=== PATIENT | male | born 1975 | race Caucasian/White ===

== ENCOUNTER 2016-08-02 15:02 | Emergency (ER) | payer MEDICAID ==
[2016-08-02] MEDS ORDERED: Aspirin 81 MG Tab.Chew PO ONE (15:07)
--- NOTE | 2016-08-02 15:10 | EDM.PDOC ---
ED HISTORY OF PRESENT ILLNESS - General Stated Complaint: [id number] CHEST PAINS Time Seen by Provider: 08/02/16 15:05 Source of Information: Reports: Patient History Limitations: Reports: No limitations - History of Present Illness INITIAL COMMENTS - FREE TEXT/NARRATIVE: This 40 yo male patient reports to the ED with chest pain. The patient reports he has been having intermittent substernal chest pain a that started at about 1245 today. The patient reports his pain is sharp and takes his breath away. The patient as been attempting to rest at home, but his pain continues to come and go. The patient has been taking his medications for htn as prescribed. Symptom Onset Date: 08/02/16 Symptom Onset Time: 12:45 Timing/Duration: Reports: Intermittent Severity: severe Location, General: Reports: chest Quality: Reports: Ache, Sharp Improves with: Reports: None Worsens with: Reports: None Context, General: Reports: Other Associated Symptoms (General): Reports: chest pain - Related Data Allergies/ADRs: Allergies Allergy/AdvReac Type Severity Reaction Status Date / Time No Known Allergies Allergy Verified 08/02/16 15:39 Home Meds: Home Meds QUEtiapine [SEROquel XR] 900 mg PO BEDTIME 05/04/13 [History] Atenolol [Tenormin] 25 tab PO DAILY 12/27/13 [History] Hydrochlorothiazide 25 tab PO DAILY 12/27/13 [History] Albuterol [Proventil HFA] 1 puff INH DAILY PRN 04/29/15 [History] Fenofibrate Nanocrystallized [Fenofibrate] 1 cap PO DAILY 04/29/15 [History] Omeprazole 20 mg PO DAILY 08/02/16 [History] Past Medical History HEENT History: Reports: Impaired vision, Other (see below) Other HEENT History: NEEDS CORRECTIVE LENSES; DOES NOT WEAR PRESENTLY Cardiovascular History: Reports: High cholesterol, Hypertension Respiratory History: Reports: Asthma, Bronchitis, recurrent, Pneumothorax, Other (see below) Other Respiratory History: Collapse lower lung field, left due to punctured wound secondary to [place]; CHEST TUBE PLACEMENT/REMOVED; BORN WITH "SEVERE LUNG INFECTION" Gastrointestinal History: Reports: GERD Genitourinary History: Reports: None Musculoskeletal History: Reports: Back pain, chronic, Other (see below) Other Musculoskeletal History: DDD DEGENERATIVE DISC DISEASE; CARPAL TUNNEL SYNDROME LEFT; TIETZE'S DISEASE(costochondritis) Neurological History: Reports: Concussion, Head trauma, Migraines Psychiatric History: Reports: Bipolar, Depression Endocrine/Metabolic History: Reports: None Hematologic History: Reports: None Immunologic History: Reports: None Oncologic (Cancer) History: Reports: None Dermatologic History: Reports: None - Past Surgical History Head Surgeries/Procedures: Reports: None HEENT Surgical History: Reports: Oral surgery, Tonsillectomy, Other (see below) Other HEENT Surgeries/Procedures: PARTIAL - UPPER Cardiovascular Surgical History: Reports: None Respiratory Surgical History: Reports: None GI Surgical History: Reports: None Male Surgical History: Reports: Renal Calculus Endocrine Surgical History: Reports: None Neurological Surgical History: Reports: None Musculoskeletal Surgical History: Reports: None Oncologic Surgical History: Reports: None Dermatological Surgical History: Reports: None Social & Family History - Family History Family Medical History: Noncontributory - Tobacco Use Smoking Status *Q: Former Smoker Years of Tobacco use: 30 Packs/Tins Daily: 1 Used Tobacco, but Quit: Yes Month Tobacco Last Used: apr 2016 Second Hand Smoke Exposure: Yes - Alcohol Use Days Per Week of Alcohol Use: 0 - Recreational Drug Use Recreational Drug Use: No Drug Use in Last 12 Months: No Recreational Drug Type: Reports: Amphetamines (Speed), Barbituates, Cocaine, Codiene, Heroin, Inhalants (Glues, Solvents, Aerosols), LSD (Acid), Marijuana/ Hashish, Methamphetamine, Morphine, Ritalin, Valium - Living Situation & Occupation Living situation: Reports: , with family Occupation: employed ED ROS GENERAL - Review of Systems Review Of Systems: ROS reveals no pertinent complaints other than HPI. ED EXAM, GENERAL - Physical Exam Exam: See Below Exam Limited By: No limitations General Appearance: alert, WD/WN, mild distress Eye Exam: bilateral eye: EOMI, normal inspection, PERRL Ears: normal external exam, normal canal, hearing grossly normal, normal TMs Nose: normal inspection, normal mucosa, no blood Throat/Mouth: Normal inspection, Normal lips, Normal teeth, Normal gums, Normal oropharynx, Normal voice, No airway compromise Head: atraumatic, normocephalic Neck: normal inspection, supple, non-tender, full range of motion Respiratory/Chest: no respiratory distress, lungs clear, normal breath sounds, no accessory muscle use, chest non-tender Cardiovascular: normal peripheral pulses, regular rate, rhythm, no edema, no gallop, no JVD, no murmur, no rub GI/Abdominal: normal bowel sounds, soft, non tender, no organomegaly, no distention, no abnormal bruit, no mass (Male) Exam: Deferred Rectal (Males) Exam: Deferred Back Exam: normal inspection, full range of motion, NT Extremities: normal inspection, normal range of motion, non-tender, normal capillary refill, no pedal edema Neurological: alert, oriented, CN II-XII intact, normal cognition, normal gait, normal reflexes, no motor/sensory deficits Psychiatric: normal affect, normal mood Skin Exam: Warm, Dry, Intact, Normal color, No rash Lymphatic: no adenopathy Course - Vital Signs Last Recorded V/S: Last Vital Signs Temp 36.3 C 08/02/16 15:02 Pulse 73 08/02/16 15:02 Resp 20 08/02/16 15:02 BP 121/90 08/02/16 15:02 Pulse Ox 96 08/02/16 15:02 - Orders/Labs/Meds Orders: Active Orders 24 hr Category Date Time Status EKG Documentation Completion [RC] URGENT Care 08/02/16 15:03 Active Labs: Laboratory Tests 08/02/16 08/02/16 Range/Units 15:07 15:07 WBC 9.4 (5.0-10.0) 10^3/uL RBC 5.26 (4.6-6.2) 10^6/uL Hgb 16.6 (14.0-18.0) g/dL Hct 46.9 (40.0-54.0) % MCV 89.2 (80-100) fL MCH 31.6 (27.0-34.0) pg MCHC 35.4 H (33.0-35.0) g/dL Plt Count 263 (150-450) 10^3/uL Neut % (Auto) 61.2 (42.2-75.2) % Lymph % (Auto) 27.9 (20.5-50.1) % Kinney % (Auto) 7.7 (2-8) % Eos % (Auto) 2.9 (1.0-3.0) % Baso % (Auto) 0.3 (0.0-1.0) % Sodium 137 (135-145) mmol/L Potassium 4.0 (3.6-5.0) mmol/L Chloride 102 (101-111) mmol/L Carbon Dioxide 27.0 (21.0-31.0) mmol/L Anion Gap 12.0 BUN 15 (7-18) mg/dL Creatinine 1.1 (0.6-1.3) mg/dL Est Cr Clr Drug Dosing 97.00 mL/min Estimated GFR (MDRD) > 60 BUN/Creatinine Ratio 13.63 Glucose 92 (74-105) mg/dL Calcium 9.3 (8.4-10.2) mg/dl Total Bilirubin 0.9 (0.2-1.0) mg/dL AST 23 (10-42) IU/L ALT 37 (10-60) IU/L Alkaline Phosphatase 56 (42-121) IU/L Troponin I < 0.02 (0.00-0.02) ng/ml Total Protein 8.0 (6.7-8.2) g/dl Albumin 4.8 (3.2-5.5) g/dl Globulin 3.2 Albumin/Globulin Ratio 1.50 Meds: Medications Discontinued Medications Generic Name Dose Route Start Last Admin Trade Name Freq PRN Reason Stop Dose Admin Al Hydroxide/Mg Hydroxide 30 ml 08/02/16 15:45 08/02/16 15:49 Gi Cocktail PO 08/02/16 15:46 30 ml ONETIME ONE Administration Aspirin 324 mg 08/02/16 15:07 08/02/16 15:13 Aspirin PO 08/02/16 15:08 324 mg ONETIME ONE Administration - Re-Assessments/Exams Free Text/Narrative Re-Assessment/Exam: 08/02/16 16:11 Patient reports his pain was down to a 1/10 after the GI cocktail. Departure - Departure Time of Disposition: 16:10 Disposition: Home, Self-Care 01 Condition: fair Clinical Impression: Non-cardiac chest pain GERD (gastroesophageal reflux disease) Qualifiers: Esophagitis presence: with esophagitis Qualified Code(s): K21.0 - Gastro- esophageal reflux disease with esophagitis Instructions: Nonspecific Chest Pain, Mogw-sv-Ooya, Gastroesophageal Reflux Disease, Adult Care Plan Goals: The patient was advised of the examination, lab, x-ray and EKG results during the visit. The patient was given a GI cocktail while in the ED. The patient was encouraged to continue with his current medications as prescribed. The patient was encouraged to eat healthy meals during the day and attempt to avoid soda. If the patient has any additional symptoms or concerns, the patient should follow-up with his primary care facility or return to the emergency department. - My Orders Last 24 Hours: My Active Orders 08/02/16 15:03 EKG Documentation Completion [RC] URGENT - Assessment/Plan Last 24 Hours: My Active Orders 08/02/16 15:03 EKG Documentation Completion [RC] URGENT
--- NOTE | 2016-08-02 15:31 | CR ---
Clinical history: 40-year-old male emergency department with chest pain. Interpretation: Subtle platelike atelectasis left lung base. Normal cardiac silhouette without alveolar edema or dependent effusion. Shasha thorax unremarkable. No pneumothorax. No lung mass, hilar lymphadenopathy or focal lobar pneumonia.
[2016-08-02 15:34] VITALS: BP 121/90
[2016-08-02 15:37] LABS: CHLORIDE,CL 102 mmol/L (101-111); SODIUM,NA 137 mmol/L (135-145)
[2016-08-02] MEDS ORDERED: GI Cocktail Oral Solution 30 ML PO ONE (15:45)
--- NOTE | 2016-08-03 23:22 | EKG ---
08/02/2016 - REMBERTO JOSE - This 12-lead EKG shows normal sinus rhythm with a ventricular rate of 67. Normal axis and intervals. No acute ST-segment or T-wave changes. [facility] /[id number]
== END 2016-08-02 16:21 | disposition home or self-care (01) ==
LOC: DL.ED 15:02
DX: R07.89 Other chest pain (principal); K21.0 Gastro-esophageal reflux disease with esophagitis; E78.00 Pure hypercholesterolemia, unspecified; I10 Essential (primary) hypertension; J45.909 Unspecified asthma, uncomplicated; F32.9 Major depressive disorder, single episode, unspecified; Z87.891 Personal history of nicotine dependence; Z79.899 Other long term (current) drug therapy
CPT/HCPCS: 36415; 71010; 80053; 84484; 85025; 93005; 99285; A9270

== ENCOUNTER 2016-09-26 19:15 | Emergency (ER) | payer MEDICAID ==
[2016-09-26 19:23] VITALS: BP 132/85
--- NOTE | 2016-09-26 19:50 | EDM.PDOC ---
ED HPI GENERAL MEDICAL PROBLEM - General Chief Complaint: Skin Complaint Stated Complaint: SUNBURN ABOUT WEEK AGO BLISTERING, [id number] Time Seen by Provider: 09/26/16 19:35 Source of Information: Reports: Patient History Limitations: Reports: No Limitations - History of Present Illness INITIAL COMMENTS - FREE TEXT/NARRATIVE: Sunburn to arms one week ago, blistering out in sun today, seems worse, has not been using sunscreen. No fever - Related Data Allergies Allergy/AdvReac Type Severity Reaction Status Date / Time No Known Allergies Allergy Verified 09/26/16 19:22 Home Meds: Home Meds QUEtiapine [SEROquel XR] 900 mg PO BEDTIME 05/04/13 [History] Atenolol [Tenormin] 25 tab PO DAILY 12/27/13 [History] Hydrochlorothiazide 25 tab PO DAILY 12/27/13 [History] Albuterol [Proventil HFA] 1 puff INH DAILY PRN 04/29/15 [History] Fenofibrate Nanocrystallized [Fenofibrate] 1 cap PO DAILY 04/29/15 [History] Omeprazole 20 mg PO DAILY 08/02/16 [History] Past Medical History HEENT History: Reports: Impaired Vision, Other (See Below) Other HEENT History: NEEDS CORRECTIVE LENSES; DOES NOT WEAR PRESENTLY Cardiovascular History: Reports: High Cholesterol, Hypertension Respiratory History: Reports: Asthma, Bronchitis, Recurrent, Pneumothorax, Other (See Below) Other Respiratory History: Collapse lower lung field, left due to punctured wound secondary to [place]; CHEST TUBE PLACEMENT/REMOVED; BORN WITH "SEVERE LUNG INFECTION" Gastrointestinal History: Reports: GERD Genitourinary History: Reports: None Musculoskeletal History: Reports: Back Pain, Chronic, Other (See Below) Other Musculoskeletal History: DDD DEGENERATIVE DISC DISEASE; CARPAL TUNNEL SYNDROME LEFT; TIETZE'S DISEASE(costochondritis) Neurological History: Reports: Concussion, Head Trauma, Migraines Psychiatric History: Reports: Bipolar, Depression Endocrine/Metabolic History: Reports: None Hematologic History: Reports: None Immunologic History: Reports: None Oncologic (Cancer) History: Reports: None Dermatologic History: Reports: None - Past Surgical History Head Surgeries/Procedures: Reports: None HEENT Surgical History: Reports: Oral Surgery, Tonsillectomy, Other (See Below) GI Surgical History: Reports: None Male Surgical History: Reports: Renal Calculus Endocrine Surgical History: Reports: None Oncologic Surgical History: Reports: None Dermatological Surgical History: Reports: None Social & Family History - Family History Family Medical History: Noncontributory - Tobacco Use Smoking Status *Q: Former Smoker Years of Tobacco use: 30 Packs/Tins Daily: 1 Used Tobacco, but Quit: No Month Tobacco Last Used: apr 2016 Second Hand Smoke Exposure: No - Caffeine Use Caffeine Use: Reports: Soda - Alcohol Use Days Per Week of Alcohol Use: 0 - Recreational Drug Use Recreational Drug Use: No Drug Use in Last 12 Months: No Recreational Drug Type: Reports: Amphetamines (Speed), Barbituates, Cocaine, Codiene, Heroin, Inhalants (Glues, Solvents, Aerosols), LSD (Acid), Marijuana/ Hashish, Methamphetamine, Morphine, Ritalin, Valium - Living Situation & Occupation Living situation: Reports: , with Family Occupation: Employed ED ROS GENERAL - Review of Systems Review Of Systems: ROS reveals no pertinent complaints other than HPI. ED EXAM, SKIN/RASH Exam: See Below Exam Limited By: No Limitations General Appearance: Alert, No Apparent Distress Ears: Normal External Exam Throat/Mouth: Normal Inspection Head: Atraumatic Neck: Normal Inspection Respiratory/Chest: No Respiratory Distress Cardiovascular: Normal Peripheral Pulses Neurological: Alert, Oriented Psychiatric: Normal Affect Skin: Warm, Dry, Intact, Other (superficial blistering to upper arms various stages, lower upper posterior arms appear new upper arms, older with some sloughing of blistering bilateral upper arms, lower arms red, no blistering. Vesicles appear clear.) Course - Vital Signs Last Recorded V/S: Last Vital Signs Temp 98.2 F 09/26/16 19:22 Pulse 87 09/26/16 19:22 Resp 18 09/26/16 19:22 BP 132/85 09/26/16 19:22 Pulse Ox 97 09/26/16 19:22 Departure - Departure Time of Disposition: 19:44 Disposition: Home, Self-Care 01 Condition: Fair Clinical Impression: Sunburn, blistering - Discharge Information Instructions: Sunburn, [id number] Forms: ED Department Discharge Additional Instructions: keep area covered lotion without perfumes, may apply antibiotic ointment to area at night. follow up if fever, or purulent drainage from area Use sunscreen
== END 2016-09-26 19:51 | disposition home or self-care (01) ==
LOC: DL.ED 19:15
DX: S40.822A Blister (nonthermal) of left upper arm, initial encounter (principal); S40.821A Blister (nonthermal) of right upper arm, initial encounter; S50.822A Blister (nonthermal) of left forearm, initial encounter; S50.821A Blister (nonthermal) of right forearm, initial encounter; H54.7 Unspecified visual loss; E78.00 Pure hypercholesterolemia, unspecified; I10 Essential (primary) hypertension; K21.9 Gastro-esophageal reflux disease without esophagitis; F32.9 Major depressive disorder, single episode, unspecified; Z79.899 Other long term (current) drug therapy; J45.909 Unspecified asthma, uncomplicated; Z98.890 Other specified postprocedural states; Z87.891 Personal history of nicotine dependence; X32.XXXA Exposure to sunlight, initial encounter
CPT/HCPCS: 99282

== ENCOUNTER 2016-11-28 17:13 | Emergency (ER) | payer OTHER, MEDICAID | END 2016-11-28 21:37 | disposition home or self-care (01) | LOC: DL.ED 17:13 | DX: S09.90XA Unspecified injury of head, initial encounter (principal); S16.1XXA Strain of muscle, fascia and tendon at neck level, initial encounter; S00.93XA Contusion of unspecified part of head, initial encounter; X58.XXXA Exposure to other specified factors, initial encounter | CPT/HCPCS: 70450; 99284 ==

== ENCOUNTER 2017-01-01 21:39 | Emergency (ER) | payer MEDICAID, OTHER ==
[2017-01-01] MEDS ORDERED: Albuterol 0.083% 2.5 MG/3 ML Neb Soln NEB ONE (21:43)
[2017-01-01 21:56] LABS: CHLORIDE,CL 106 mmol/L (101-111); SODIUM,NA 141 mmol/L (135-145)
--- NOTE | 2017-01-01 23:13 | EDM.PDOC ---
ED HPI GENERAL MEDICAL PROBLEM - General Chief Complaint: Chest Pain Stated Complaint: IN BY AMBULANCE Time Seen by Provider: 01/01/17 21:40 Source of Information: Reports: Patient History Limitations: Reports: No Limitations - History of Present Illness INITIAL COMMENTS - FREE TEXT/NARRATIVE: ED via [facility] with c/o midsternal chest pain radiating thrugh to back. Noted while at work at [employer]. Hx of asthma. Simialr episodes in past. Pain worse with deep breathing. Onset: Today Duration: Intermittent, Improving Location: Reports: Chest Quality: Reports: Ache, Burning, Stabbing Severity: Moderate Context: Reports: Activity. Denies: Trauma Anterior Chest Pain Score (Numeric/FACES): 5 - Related Data Allergies Allergy/AdvReac Type Severity Reaction Status Date / Time No Known Allergies Allergy Verified 01/01/17 21:23 Home Meds: Home Meds QUEtiapine [SEROquel XR] 900 mg PO BEDTIME 05/04/13 [History] Atenolol [Tenormin] 25 tab PO DAILY 12/27/13 [History] Hydrochlorothiazide 25 tab PO DAILY 12/27/13 [History] Albuterol [Proventil HFA] 1 puff INH DAILY PRN 04/29/15 [History] Fenofibrate Nanocrystallized [Fenofibrate] 1 cap PO DAILY 04/29/15 [History] Omeprazole 20 mg PO DAILY 08/02/16 [History] Past Medical History HEENT History: Reports: Impaired Vision, Other (See Below) Other HEENT History: NEEDS CORRECTIVE LENSES; DOES NOT WEAR PRESENTLY Cardiovascular History: Reports: High Cholesterol, Hypertension Respiratory History: Reports: Asthma, Bronchitis, Recurrent, Pneumothorax, Other (See Below) Other Respiratory History: Collapse lower lung field, left due to punctured wound secondary to [place]; CHEST TUBE PLACEMENT/REMOVED; BORN WITH "SEVERE LUNG INFECTION" Gastrointestinal History: Reports: GERD Genitourinary History: Reports: None Musculoskeletal History: Reports: Back Pain, Chronic, Other (See Below) Other Musculoskeletal History: DDD DEGENERATIVE DISC DISEASE; CARPAL TUNNEL SYNDROME LEFT; TIETZE'S DISEASE(costochondritis) Neurological History: Reports: Concussion, Head Trauma, Migraines Psychiatric History: Reports: ADHD, Anxiety, Bipolar, Depression, Panic Attack Endocrine/Metabolic History: Reports: None Hematologic History: Reports: None Immunologic History: Reports: None Oncologic (Cancer) History: Reports: None Dermatologic History: Reports: None - Past Surgical History Head Surgeries/Procedures: Reports: None HEENT Surgical History: Reports: Oral Surgery, Tonsillectomy, Other (See Below) GI Surgical History: Reports: None Male Surgical History: Reports: Renal Calculus Endocrine Surgical History: Reports: None Oncologic Surgical History: Reports: None Dermatological Surgical History: Reports: None Social & Family History - Family History Family Medical History: Noncontributory - Tobacco Use Smoking Status *Q: Current Every Day Smoker Years of Tobacco use: 30 Packs/Tins Daily: 1 Used Tobacco, but Quit: No Month Tobacco Last Used: apr 2016 Second Hand Smoke Exposure: No - Caffeine Use Caffeine Use: Reports: Coffee - Alcohol Use Days Per Week of Alcohol Use: 0 - Recreational Drug Use Recreational Drug Use: No Drug Use in Last 12 Months: No Recreational Drug Type: Reports: Amphetamines (Speed), Barbituates, Cocaine, Codiene, Heroin, Inhalants (Glues, Solvents, Aerosols), LSD (Acid), Marijuana/ Hashish, Methamphetamine, Morphine, Ritalin, Valium - Living Situation & Occupation Living situation: Reports: , with Family Occupation: Employed ED ROS GENERAL - Review of Systems Review Of Systems: See Below Constitutional: Reports: No Symptoms HEENT: Reports: No Symptoms Respiratory: Reports: Shortness of Breath, Pleuritic Chest Pain Cardiovascular: Reports: Chest Pain. Denies: Dyspnea on Exertion, Edema Endocrine: Reports: No Symptoms GI/Abdominal: Reports: No Symptoms Musculoskeletal: Reports: No Symptoms Skin: Reports: No Symptoms Neurological: Reports: No Symptoms ED EXAM, GENERAL - Physical Exam Exam: See Below Exam Limited By: No Limitations General Appearance: Alert, No Apparent Distress Eye Exam: Bilateral Eye: EOMI, PERRL Ears: Normal External Exam, Normal TMs Nose: Normal Inspection Throat/Mouth: Normal Inspection Head: Atraumatic, Normocephalic Neck: Normal Inspection Respiratory/Chest: No Respiratory Distress, Lungs Clear, Decreased Breath Sounds Cardiovascular: Normal Peripheral Pulses, Regular Rate, Rhythm, No Edema, No Gallop, No JVD GI/Abdominal: Normal Bowel Sounds Back Exam: Normal Inspection, Decreased Range of Motion Neurological: Alert, Oriented, CN II-XII Intact, Normal Cognition, Normal Gait, Normal Reflexes Psychiatric: Normal Affect, Normal Mood Skin Exam: Warm, Dry, Intact, Normal Color, No Rash Course - Vital Signs Last Recorded V/S: Last Vital Signs Temp 97.7 F 01/01/17 23:23 Pulse 90 01/01/17 23:23 Resp 20 01/01/17 23:23 BP 145/98 H 01/01/17 23:47 Pulse Ox 98 01/01/17 23:23 - Orders/Labs/Meds Orders: Active Orders 24 hr Category Date Time Status RT Aerosol Therapy [RC] ASDIRECTED Care 01/01/17 21:44 Active Labs: Laboratory Tests 01/01/17 01/01/17 Range/Units 21:26 21:26 WBC 8.1 (5.0-10.0) 10^3/uL RBC 4.98 (4.6-6.2) 10^6/uL Hgb 15.6 (14.0-18.0) g/dL Hct 44.3 (40.0-54.0) % MCV 89.0 (80-100) fL MCH 31.3 (27.0-34.0) pg MCHC 35.2 H (33.0-35.0) g/dL Plt Count 246 (150-450) 10^3/uL Neut % (Auto) 58.1 (42.2-75.2) % Lymph % (Auto) 29.8 (20.5-50.1) % Phillips % (Auto) 9.6 H (2-8) % Eos % (Auto) 2.0 (1.0-3.0) % Baso % (Auto) 0.5 (0.0-1.0) % Sodium 141 (135-145) mmol/L Potassium 3.8 (3.6-5.0) mmol/L Chloride 106 (101-111) mmol/L Carbon Dioxide 23.0 (21.0-31.0) mmol/L Anion Gap 15.8 BUN 10 (7-18) mg/dL Creatinine 1.0 (0.6-1.3) mg/dL Est Cr Clr Drug Dosing 105.62 mL/min Estimated GFR (MDRD) > 60 BUN/Creatinine Ratio 10.00 Glucose 125 H (74-105) mg/dL Calcium 8.8 (8.4-10.2) mg/dl Total Bilirubin 0.7 (0.2-1.0) mg/dL AST 22 (10-42) IU/L ALT 23 (10-60) IU/L Alkaline Phosphatase 45 (42-121) IU/L Troponin I < 0.02 (0.00-0.02) ng/ml Total Protein 6.9 (6.7-8.2) g/dl Albumin 4.1 (3.2-5.5) g/dl Globulin 2.8 Albumin/Globulin Ratio 1.46 Meds: Medications Discontinued Medications Generic Name Dose Route Start Last Admin Trade Name Mary Anne PRN Reason Stop Dose Admin Albuterol 2.5 mg 01/01/17 21:43 01/01/17 21:47 Proventil Neb Soln NEB 01/01/17 21:44 2.5 mg ONETIME ONE Administration Atenolol 25 mg 01/01/17 23:41 01/01/17 23:47 Tenormin PO 01/01/17 23:42 25 mg ONETIME ONE Administration - Radiology Interpretation Free Text/Narrative:: CXR unremarkable Departure - Departure Time of Disposition: 23:42 Disposition: Home, Self-Care 01 Condition: Good Clinical Impression: Asthma Qualifiers: Asthma severity: mild intermittent Asthma complication type: with acute exacerbation Qualified Code(s): J45.21 - Mild intermittent asthma with (acute) exacerbation - Discharge Information Instructions: Nonspecific Chest Pain, [id number], Asthma, Adult, [id number] Referrals: PCP,Not In Area [Primary Care Provider] - Forms: ED Department Discharge Additional Instructions: albuterol 2 puffs every 4 hours as needed for cough wheezing monitor blood pressure, follow up if increased pain or breathing difficulty - My Orders Last 24 Hours: My Active Orders 01/01/17 21:44 RT Aerosol Therapy [RC] ASDIRECTED - Assessment/Plan Last 24 Hours: My Active Orders 01/01/17 21:44 RT Aerosol Therapy [RC] ASDIRECTED
[2017-01-01] MEDS ORDERED: Atenolol 25 MG Tab PO ONE (23:41)
[2017-01-01 23:47] VITALS: BP 145/98
--- NOTE | 2017-01-05 11:12 | EKG ---
01/01/2017 - REMBERTO JOSE - This 12-lead EKG shows a normal sinus rhythm with ventricular rate of 94. Normal axis and intervals. No acute ST-segment or T-wave changes. [facility] /[id number]
== END 2017-01-01 23:59 | disposition home or self-care (01) ==
LOC: DL.ED 21:39
DX: J45.21 Mild intermittent asthma with (acute) exacerbation (principal); K21.9 Gastro-esophageal reflux disease without esophagitis; F17.210 Nicotine dependence, cigarettes, uncomplicated; Z79.899 Other long term (current) drug therapy
CPT/HCPCS: 36415; 71010; 80053; 84484; 85025; 94640; 99285; A9270; J7620

== ENCOUNTER 2017-01-27 14:27 | Emergency (ER) | payer MEDICAID ==
[2017-01-27 15:01] VITALS: BP 126/89
[2017-01-27] MEDS ORDERED: Sodium Chloride 0.9% 1,000 ML IV ONE (15:08)
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
[2017-01-27 15:44] LABS: CHLORIDE,CL 105 mmol/L (101-111); SODIUM,NA 140 mmol/L (135-145)
[2017-01-27] MEDS ORDERED: Potassium Chloride 10 MEQ Tab.ER PO ONE (16:01)
--- NOTE | 2017-01-30 11:31 | EKG ---
01/27/2017 - REMBERTO JOSE - TIME: 1511 hours. EKG shows normal sinus rhythm. There are nonspecific T-wave abnormality. [facility] /[id number]
== END 2017-01-27 17:30 | disposition home or self-care (01) ==
LOC: DL.ED 14:27
DX: R55 Syncope and collapse (principal); F19.10 Other psychoactive substance abuse, uncomplicated; E78.00 Pure hypercholesterolemia, unspecified; I10 Essential (primary) hypertension; J45.909 Unspecified asthma, uncomplicated; Z79.899 Other long term (current) drug therapy; Z87.891 Personal history of nicotine dependence
CPT/HCPCS: 36415; 70450; 80053; 80305; 81001; 83735; 85025; 93005; 96360; 99284; A9270; J7030

== ENCOUNTER 2017-03-07 11:39 | Emergency (ER) | payer MEDICAID ==
[2017-03-07 12:45] VITALS: BP 141/90
--- NOTE | 2017-03-07 13:24 | CR ---
Clinical history: 41-year-old male fell off [employer] pickup (back pain). Interpretation: AP, lateral views lumbar spine abnormal. Mildly scoliosis and signs of chronic severe lower lumbar disc disease i.e. interspace narrowing with endplate sclerosis and hypertrophic marginal spur formation at the lowest L5-S1 level. No sign of pathologic skeletal lesion and, specifically, no fracture or dislocation of the lumbar spi ne. Symmetric spacing normal-appearing SI and hip joints. No foreign bodies.
--- NOTE | 2017-03-07 13:47 | EDM.PDOC ---
ED HPI GENERAL MEDICAL PROBLEM - General Chief Complaint: Back Pain or Injury Stated Complaint: SLIPPED AND BACK IS HURTING Time Seen by Provider: 03/07/17 13:46 Source of Information: Reports: Patient History Limitations: Reports: No Limitations - History of Present Illness INITIAL COMMENTS - FREE TEXT/NARRATIVE: 41 yo white male w/ PMHx. Lumbar DDD c/o more pain after assisting another person with boxes @ 11:30AM Onset: Today Onset Date: 03/07/17 Onset Time: 11:00 Duration: Hour(s): Location: Reports: Back Quality: Reports: Ache Severity: Moderate Improves with: Reports: Rest Worsens with: Reports: Movement Context: Reports: Activity Associated Symptoms: Reports: No Other Symptoms Lower Back Pain Score (Numeric/FACES): 9 - Related Data Allergies Allergy/AdvReac Type Severity Reaction Status Date / Time No Known Allergies Allergy Verified 01/30/17 07:45 Home Meds: Home Meds QUEtiapine [SEROquel XR] 900 mg PO BEDTIME 05/04/13 [History] Atenolol [Tenormin] 25 tab PO DAILY 12/27/13 [History] Hydrochlorothiazide 25 tab PO DAILY 12/27/13 [History] Albuterol [Proventil HFA] 1 puff INH Q4HR PRN 04/29/15 [History] Fenofibrate Nanocrystallized [Fenofibrate] 160 mg PO DAILY 04/29/15 [History] Omeprazole 20 mg PO BID 08/02/16 [History] Fluticasone Propionate [Flovent Hfa] 2 puff IH BID 01/30/17 [History] Simvastatin [Zocor] 10 mg PO BEDTIME 01/30/17 [History] Lidocaine [Lidoderm] 1 patch TD BEDTIME 03/07/17 [History] Past Medical History HEENT History: Reports: Impaired Vision, Other (See Below) Other HEENT History: NEEDS CORRECTIVE LENSES; DOES NOT WEAR PRESENTLY Cardiovascular History: Reports: High Cholesterol, Hypertension Respiratory History: Reports: Asthma, Bronchitis, Recurrent, Pneumothorax, Other (See Below) Other Respiratory History: Collapse lower lung field, left due to punctured wound secondary to [place]; CHEST TUBE PLACEMENT/REMOVED; BORN WITH "SEVERE LUNG INFECTION" Gastrointestinal History: Reports: GERD Genitourinary History: Reports: None Musculoskeletal History: Reports: Back Pain, Chronic, Other (See Below) Other Musculoskeletal History: DDD DEGENERATIVE DISC DISEASE; CARPAL TUNNEL SYNDROME LEFT; TIETZE'S DISEASE(costochondritis) Neurological History: Reports: Concussion, Head Trauma, Migraines Psychiatric History: Reports: Bipolar, Depression Endocrine/Metabolic History: Reports: None Hematologic History: Reports: None Immunologic History: Reports: None Oncologic (Cancer) History: Reports: None Dermatologic History: Reports: None - Past Surgical History Head Surgeries/Procedures: Reports: None HEENT Surgical History: Reports: Naso-Sinus Surgery, Tonsillectomy Social & Family History - Family History Family Medical History: Noncontributory - Tobacco Use Smoking Status *Q: Former Smoker Years of Tobacco use: 30 Packs/Tins Daily: 1 Used Tobacco, but Quit: Yes Month Tobacco Last Used: 08/2016 Tobacco Use Comment: Pt smoked 2 packs a day for 30 years, just quit 6 months ago Second Hand Smoke Exposure: No - Caffeine Use Caffeine Use: Reports: Coffee, Energy Drinks, Soda - Alcohol Use Days Per Week of Alcohol Use: 0 - Recreational Drug Use Recreational Drug Use: No Drug Use in Last 12 Months: No Recreational Drug Type: Reports: Amphetamines (Speed), Barbituates, Cocaine, Codiene, Heroin, Inhalants (Glues, Solvents, Aerosols), LSD (Acid), Marijuana/ Hashish, Methamphetamine, Morphine, Ritalin, Valium - Living Situation & Occupation Living situation: Reports: , with Family Occupation: Employed ED ROS GENERAL - Review of Systems Review Of Systems: See Below Constitutional: Reports: No Symptoms HEENT: Reports: No Symptoms Respiratory: Reports: No Symptoms Cardiovascular: Reports: No Symptoms Endocrine: Reports: No Symptoms GI/Abdominal: Reports: No Symptoms : Reports: No Symptoms Musculoskeletal: Reports: Back Pain Skin: Reports: No Symptoms Neurological: Reports: No Symptoms Psychiatric: Reports: No Symptoms Hematologic/Lymphatic: Reports: No Symptoms Immunologic: Reports: No Symptoms ED EXAM,LOWER BACK PAIN/INJURY - Physical Exam Exam: See Below Exam Limited By: No Limitations General Appearance: Alert, No Apparent Distress Eye Exam: Bilateral Eye: EOMI Ears: Normal External Exam Nose: Normal Inspection Throat/Mouth: Normal Inspection Head: Atraumatic Neck: Normal Inspection Respiratory/Chest: No Respiratory Distress Cardiovascular: Normal Peripheral Pulses GI/Abdominal: Normal Bowel Sounds Back Exam: Normal Inspection, Paraspinal Tenderness Extremities: Normal Inspection Neurological: Alert, Normal Mood/Affect, Normal Dorsiflexion DTR - Lower Extremities: 2+: Knee (R), Knee (L) Psychiatric: Normal Affect Skin Exam: Warm Lymphatic: No Adenopathy Course - Vital Signs Last Recorded V/S: Last Vital Signs Temp 36.6 C 03/07/17 12:44 Pulse 111 H 03/07/17 12:44 Resp 20 03/07/17 12:44 BP 141/90 H 03/07/17 12:44 Pulse Ox 98 03/07/17 12:44 Departure - Departure Time of Disposition: 13:53 Disposition: Home, Self-Care 01 Condition: Good Clinical Impression: Lumbar degenerative disc disease - Discharge Information Instructions: Back Pain, Adult, [id number], Chronic Back Pain Forms: ED Department Discharge Additional Instructions: Rest Moist Heat to Low Back TID X 15 mins For Pain and Spasms: NEURONTIN 300mg BID # 20 F/U w/ PCP
== END 2017-03-07 14:01 | disposition home or self-care (01) ==
LOC: DL.ED 11:39
DX: M51.36 Other intervertebral disc degeneration, lumbar region (principal); I10 Essential (primary) hypertension; E78.00 Pure hypercholesterolemia, unspecified; J45.909 Unspecified asthma, uncomplicated; K21.9 Gastro-esophageal reflux disease without esophagitis; Z87.891 Personal history of nicotine dependence; Z79.899 Other long term (current) drug therapy
CPT/HCPCS: 72100; 99283

== ENCOUNTER 2017-03-16 16:46 | Emergency (ER) | payer MEDICAID ==
--- NOTE | 2017-03-16 17:32 | EDM.PDOC ---
ED HPI GENERAL MEDICAL PROBLEM - General Chief Complaint: Back Pain or Injury Stated Complaint: CAME BY AMBULANCE, COLLAPSED Time Seen by Provider: 03/16/17 17:23 Source of Information: Reports: Patient, RN, RN Notes Reviewed History Limitations: Reports: No Limitations - History of Present Illness INITIAL COMMENTS - FREE TEXT/NARRATIVE: Pt presents to ER per [facility]. He states he felt a sharp pain down his legs and collapsed on the floor at home. Pt denies being dizzy prior to the episode. He states he has chronic back issues. Patient denies any recent illnesses, fever, chills, sob, cp, cough, sore throat, N/V/D. Onset: Today, Sudden Back Pain Score (Numeric/FACES): 9 - Related Data Allergies Allergy/AdvReac Type Severity Reaction Status Date / Time No Known Allergies Allergy Verified 03/16/17 16:58 Home Meds: Home Meds QUEtiapine [SEROquel XR] 900 mg PO BEDTIME 05/04/13 [History] Atenolol [Tenormin] 25 tab PO DAILY 12/27/13 [History] Hydrochlorothiazide 25 tab PO DAILY 12/27/13 [History] Albuterol [Proventil HFA] 1 puff INH Q4HR PRN 04/29/15 [History] Fenofibrate Nanocrystallized [Fenofibrate] 160 mg PO DAILY 04/29/15 [History] Fluticasone Propionate [Flovent Hfa] 2 puff IH BID 01/30/17 [History] Simvastatin [Zocor] 10 mg PO BEDTIME 01/30/17 [History] Lidocaine [Lidoderm] 1 patch TD BEDTIME 03/07/17 [History] Albuterol [Proventil Neb Soln] 0.63 mg NEB Q6HRRT PRN 03/16/17 [History] Gabapentin [Neurontin] 600 mg PO BID 03/16/17 [History] traMADol [Ultram] 50 mg PO TID 03/16/17 [History] Past Medical History HEENT History: Reports: Impaired Vision, Other (See Below) Other HEENT History: NEEDS CORRECTIVE LENSES; DOES NOT WEAR PRESENTLY Cardiovascular History: Reports: High Cholesterol, Hypertension Respiratory History: Reports: Asthma, Bronchitis, Recurrent, Pneumothorax, Other (See Below) Other Respiratory History: Collapse lower lung field, left due to punctured wound secondary to [place]; CHEST TUBE PLACEMENT/REMOVED; BORN WITH "SEVERE LUNG INFECTION" Gastrointestinal History: Reports: GERD Genitourinary History: Reports: None Musculoskeletal History: Reports: Back Pain, Chronic, Other (See Below) Other Musculoskeletal History: DDD DEGENERATIVE DISC DISEASE; CARPAL TUNNEL SYNDROME LEFT; TIETZE'S DISEASE(costochondritis) Neurological History: Reports: Concussion, Head Trauma, Migraines Psychiatric History: Reports: Bipolar, Depression Endocrine/Metabolic History: Reports: None Hematologic History: Reports: None Immunologic History: Reports: None Oncologic (Cancer) History: Reports: None Dermatologic History: Reports: None - Infectious Disease History Infectious Disease History: Reports: Chicken Pox - Past Surgical History Head Surgeries/Procedures: Reports: None HEENT Surgical History: Reports: Naso-Sinus Surgery, Tonsillectomy Social & Family History - Family History Family Medical History: Noncontributory - Tobacco Use Smoking Status *Q: Former Smoker Years of Tobacco use: 30 Packs/Tins Daily: 2 Used Tobacco, but Quit: Yes Month Tobacco Last Used: october Second Hand Smoke Exposure: No - Caffeine Use Caffeine Use: Reports: Soda - Alcohol Use Days Per Week of Alcohol Use: 0 - Recreational Drug Use Recreational Drug Use: No Drug Use in Last 12 Months: No Recreational Drug Type: Reports: Amphetamines (Speed), Barbituates, Cocaine, Codiene, Heroin, Inhalants (Glues, Solvents, Aerosols), LSD (Acid), Marijuana/ Hashish, Methamphetamine, Morphine, Ritalin, Valium - Living Situation & Occupation Living situation: Reports: , with Family Occupation: Employed ED ROS GENERAL - Review of Systems Review Of Systems: ROS reveals no pertinent complaints other than HPI. ED EXAM, GENERAL - Physical Exam Exam: See Below Exam Limited By: No Limitations General Appearance: Alert, WD/WN, No Apparent Distress Eye Exam: Bilateral Eye: EOMI, Normal Inspection Ears: Normal External Exam, Hearing Grossly Normal Nose: Normal Inspection Throat/Mouth: Normal Inspection, Normal Voice, No Airway Compromise Head: Atraumatic, Normocephalic Neck: Normal Inspection, Supple, Non-Tender, Full Range of Motion Respiratory/Chest: No Respiratory Distress, Lungs Clear, Normal Breath Sounds, No Accessory Muscle Use, Chest Non-Tender Cardiovascular: Normal Peripheral Pulses, Regular Rate, Rhythm, No Edema, No Gallop, No JVD, No Murmur, No Rub Peripheral Pulses: 2+: Radial (L), Radial (R) GI/Abdominal: Normal Bowel Sounds, Soft, Non-Tender, No Organomegaly, No Distention, No Abnormal Bruit, No Mass (Male) Exam: Deferred Rectal (Males) Exam: Deferred Back Exam: Normal Inspection, Decreased Range of Motion, Paraspinal Tenderness, Vertebral Tenderness Extremities: Normal Inspection, Normal Range of Motion, Non-Tender, No Pedal Edema Neurological: Alert, Oriented, CN II-XII Intact, Normal Cognition, No Motor/ Sensory Deficits Psychiatric: Normal Affect, Normal Mood Skin Exam: Warm, Dry, Intact, Normal Color, No Rash Lymphatic: No Adenopathy EKG INTERPRETATION EKG Date: 03/16/17 Rhythm: NSR Rate (Beats/Min): 75 [place]: Normal P-Wave: Present QRS: Normal ST-T: Normal QT: Normal Comparison: NA - No Prior EKG Course - Vital Signs Last Recorded V/S: Last Vital Signs Temp 97.4 F 03/16/17 18:13 Pulse 73 03/16/17 18:13 Resp 20 03/16/17 18:13 BP 148/103 H 03/16/17 18:13 Pulse Ox 96 03/16/17 18:13 - Orders/Labs/Meds Labs: Laboratory Tests 03/16/17 03/16/17 03/16/17 Range/Units 17:40 17:40 18:28 WBC 8.5 (5.0-10.0) 10^3/uL RBC 4.89 (4.6-6.2) 10^6/uL Hgb 15.4 (14.0-18.0) g/dL Hct 43.2 (40.0-54.0) % MCV 88.3 (80-100) fL MCH 31.5 (27.0-34.0) pg MCHC 35.6 H (33.0-35.0) g/dL Plt Count 264 (150-450) 10^3/uL Neut % (Auto) 66.9 (42.2-75.2) % Lymph % (Auto) 23.0 (20.5-50.1) % Yell % (Auto) 9.0 H (2-8) % Eos % (Auto) 0.7 L (1.0-3.0) % Baso % (Auto) 0.4 (0.0-1.0) % Sodium 137 (135-145) mmol/L Potassium 3.5 L (3.6-5.0) mmol/L Chloride 100 L (101-111) mmol/L Carbon Dioxide 27.0 (21.0-31.0) mmol/L Anion Gap 13.5 BUN 14 (7-18) mg/dL Creatinine 1.1 (0.6-1.3) mg/dL Est Cr Clr Drug Dosing 96.02 mL/min Estimated GFR (MDRD) > 60 BUN/Creatinine Ratio 12.72 Glucose 101 (74-105) mg/dL Calcium 9.6 (8.4-10.2) mg/dl Total Bilirubin 0.9 (0.2-1.0) mg/dL AST 34 (10-42) IU/L ALT 43 (10-60) IU/L Alkaline Phosphatase 42 (42-121) IU/L Total Protein 8.0 (6.7-8.2) g/dl Albumin 4.8 (3.2-5.5) g/dl Globulin 3.2 Albumin/Globulin Ratio 1.50 Urine Color Yellow (YELLOW) Urine Appearance Clear (CLEAR) Urine pH 7.0 (5.0-9.0) Ur Specific [place] 1.015 (1.005-1.030) Urine Protein Negative (NEGATIVE) Urine Glucose (UA) Negative (NEGATIVE) Urine Ketones Negative (NEGATIVE) Urine Occult Blood Negative (NEGATIVE) Urine Nitrite Negative (NEGATIVE) Urine Bilirubin Negative (NEGATIVE) Urine Urobilinogen 0.2 (0.2-1.0) mg/dL Ur Leukocyte Esterase Negative (NEGATIVE) Urine RBC 0-5 /HPF Urine WBC 0-5 (0-5/HPF) /HPF Ur Epithelial Cells Occasional /HPF Urine Bacteria Occasional (0-FEW/HPF) /HPF Urine Opiates Screen (NEGATIVE) Ur Oxycodone Screen (NEGATIVE) Urine Methadone Screen (NEGATIVE) Ur Barbiturates Screen (NEGATIVE) U Tricyclic Antidepress (NEGATIVE) Ur Phencyclidine Scrn (NEGATIVE) Ur Amphetamine Screen (NEGATIVE) U Methamphetamines Scrn (NEGATIVE) Urine MDMA Screen (NEGATIVE) U Benzodiazepines Scrn (NEGATIVE) Urine Cocaine Screen (NEGATIVE) U Marijuana (THC) Screen (NEGATIVE) 03/16/17 Range/Units 18:28 WBC (5.0-10.0) 10^3/uL RBC (4.6-6.2) 10^6/uL Hgb (14.0-18.0) g/dL Hct (40.0-54.0) % MCV (80-100) fL MCH (27.0-34.0) pg MCHC (33.0-35.0) g/dL Plt Count (150-450) 10^3/uL Neut % (Auto) (42.2-75.2) % Lymph % (Auto) (20.5-50.1) % Yell % (Auto) (2-8) % Eos % (Auto) (1.0-3.0) % Baso % (Auto) (0.0-1.0) % Sodium (135-145) mmol/L Potassium (3.6-5.0) mmol/L Chloride (101-111) mmol/L Carbon Dioxide (21.0-31.0) mmol/L Anion Gap BUN (7-18) mg/dL Creatinine (0.6-1.3) mg/dL Est Cr Clr Drug Dosing mL/min Estimated GFR (MDRD) BUN/Creatinine Ratio Glucose (74-105) mg/dL Calcium (8.4-10.2) mg/dl Total Bilirubin (0.2-1.0) mg/dL AST (10-42) IU/L ALT (10-60) IU/L Alkaline Phosphatase (42-121) IU/L Total Protein (6.7-8.2) g/dl Albumin (3.2-5.5) g/dl Globulin Albumin/Globulin Ratio Urine Color (YELLOW) Urine Appearance (CLEAR) Urine pH (5.0-9.0) Ur Specific [place] (1.005-1.030) Urine Protein (NEGATIVE) Urine Glucose (UA) (NEGATIVE) Urine Ketones (NEGATIVE) Urine Occult Blood (NEGATIVE) Urine Nitrite (NEGATIVE) Urine Bilirubin (NEGATIVE) Urine Urobilinogen (0.2-1.0) mg/dL Ur Leukocyte Esterase (NEGATIVE) Urine RBC /HPF Urine WBC (0-5/HPF) /HPF Ur Epithelial Cells /HPF Urine Bacteria (0-FEW/HPF) /HPF Urine Opiates Screen Negative (NEGATIVE) Ur Oxycodone Screen Negative (NEGATIVE) Urine Methadone Screen Negative (NEGATIVE) Ur Barbiturates Screen Negative (NEGATIVE) U Tricyclic Antidepress Negative (NEGATIVE) Ur Phencyclidine Scrn Negative (NEGATIVE) Ur Amphetamine Screen Negative (NEGATIVE) U Methamphetamines Scrn Negative (NEGATIVE) Urine MDMA Screen Negative (NEGATIVE) U Benzodiazepines Scrn Negative (NEGATIVE) Urine Cocaine Screen Negative (NEGATIVE) U Marijuana (THC) Screen Negative (NEGATIVE) Departure - Departure Time of Disposition: 18:47 Disposition: Home, Self-Care 01 Condition: Fair Clinical Impression: Chronic back pain Qualifiers: Back pain location: low back pain Back pain laterality: midline Sciatica presence: with sciatica Sciatica laterality: bilateral sciatica Qualified Code(s ): M54.41 - Lumbago with sciatica, right side - Discharge Information Instructions: Back Injury Prevention, [id number], Back Pain, Adult, Easy-to- Read, Chronic Back Pain Referrals: Tiana Lazo NP [Primary Care Provider] - Forms: ED Department Discharge Additional Instructions: Continue with your current pain regimen. Follow up with your primary care provider next week.
[2017-03-16 18:06] LABS: CHLORIDE,CL 100 mmol/L (101-111); SODIUM,NA 137 mmol/L (135-145)
[2017-03-16 18:13] VITALS: BP 148/103
--- NOTE | 2017-03-20 12:21 | EKG ---
03/16/2017 - REMBERTO JOSE - Twelve-lead EKG shows normal sinus rhythm with a heart rate of 75. No significant ST elevation or ST depression noted on this 12-lead EKG except for nonspecific ST-T wave changes noted on lead V2, V3. [facility] /[id number]
== END 2017-03-16 19:04 | disposition home or self-care (01) ==
LOC: DL.ED 16:46
DX: M54.41 Lumbago with sciatica, right side (principal); I10 Essential (primary) hypertension; E78.00 Pure hypercholesterolemia, unspecified; J45.909 Unspecified asthma, uncomplicated; K21.9 Gastro-esophageal reflux disease without esophagitis; F31.9 Bipolar disorder, unspecified; Z87.891 Personal history of nicotine dependence; Z79.899 Other long term (current) drug therapy
CPT/HCPCS: 36415; 80053; 80305; 81001; 85025; 99284

== ENCOUNTER 2017-08-10 09:36 | Emergency (ER) | payer MEDICAID ==
[2017-08-10 09:43] VITALS: BP 158/85
--- NOTE | 2017-08-10 09:50 | EDM.PDOC ---
ED HPI GENERAL MEDICAL PROBLEM - General Chief Complaint: Upper Extremity Injury/Pain Stated Complaint: RT MIDDLE FINGER,SLAMMED IN DOOR Time Seen by Provider: 08/10/17 09:50 Source of Information: Reports: Patient, RN, RN Notes Reviewed History Limitations: Reports: No Limitations - History of Present Illness INITIAL COMMENTS - FREE TEXT/NARRATIVE: Arrives to ER by POV with c/o right middle finger pain sustained last evening when pt accidentally slammed his finger in a door. Denies any other injury. Pain with swelling and bruising to the distal finger. Onset Date: 08/09/17 Duration: Constant Location: Reports: Upper Extremity, Right Quality: Reports: Ache, Throbbing Severity: Moderate Improves with: Reports: None Worsens with: Reports: Other (palpation), Movement Associated Symptoms: Reports: No Other Symptoms Right 3-Middle finger Pain Score (Numeric/FACES): 5 - Related Data Allergies Allergy/AdvReac Type Severity Reaction Status Date / Time No Known Allergies Allergy Verified 03/16/17 16:58 Home Meds: Home Meds QUEtiapine [SEROquel XR] 900 mg PO BEDTIME 05/04/13 [History] Atenolol [Tenormin] 25 tab PO DAILY 12/27/13 [History] Hydrochlorothiazide 25 tab PO DAILY 12/27/13 [History] Albuterol [Proventil HFA] 1 puff INH Q4HR PRN 04/29/15 [History] Fenofibrate Nanocrystallized [Fenofibrate] 160 mg PO DAILY 04/29/15 [History] Fluticasone Propionate [Flovent Hfa] 2 puff IH BID 01/30/17 [History] Simvastatin [Zocor] 10 mg PO BEDTIME 01/30/17 [History] Lidocaine [Lidoderm] 1 patch TD BEDTIME 03/07/17 [History] Albuterol [Proventil Neb Soln] 0.63 mg NEB Q6HRRT PRN 03/16/17 [History] Gabapentin [Neurontin] 600 mg PO BID 03/16/17 [History] traMADol [Ultram] 50 mg PO TID 03/16/17 [History] Past Medical History HEENT History: Reports: Impaired Vision, Other (See Below) Other HEENT History: NEEDS CORRECTIVE LENSES; DOES NOT WEAR PRESENTLY Cardiovascular History: Reports: High Cholesterol, Hypertension Respiratory History: Reports: Asthma, Bronchitis, Recurrent, Pneumothorax, Other (See Below) Other Respiratory History: Collapse lower lung field, left due to punctured wound secondary to [place]; CHEST TUBE PLACEMENT/REMOVED; BORN WITH "SEVERE LUNG INFECTION" Gastrointestinal History: Reports: GERD Genitourinary History: Reports: None Musculoskeletal History: Reports: Back Pain, Chronic, Other (See Below) Other Musculoskeletal History: DDD DEGENERATIVE DISC DISEASE; CARPAL TUNNEL SYNDROME LEFT; TIETZE'S DISEASE(costochondritis) Neurological History: Reports: Concussion, Head Trauma, Migraines Psychiatric History: Reports: Bipolar, Depression Endocrine/Metabolic History: Reports: None Hematologic History: Reports: None Immunologic History: Reports: None Oncologic (Cancer) History: Reports: None Dermatologic History: Reports: None - Infectious Disease History Infectious Disease History: Reports: Chicken Pox - Past Surgical History Head Surgeries/Procedures: Reports: None HEENT Surgical History: Reports: Naso-Sinus Surgery, Tonsillectomy Social & Family History - Family History Family Medical History: Noncontributory - Tobacco Use Smoking Status *Q: Former Smoker Years of Tobacco use: 30 Packs/Tins Daily: 2 Used Tobacco, but Quit: Yes Month/Year Tobacco Last Used: october Second Hand Smoke Exposure: No - Caffeine Use Caffeine Use: Reports: Soda - Alcohol Use Days Per Week of Alcohol Use: 0 - Recreational Drug Use Recreational Drug Use: No Drug Use in Last 12 Months: No Recreational Drug Type: Reports: Amphetamines (Speed), Barbituates, Cocaine, Codiene, Heroin, Inhalants (Glues, Solvents, Aerosols), LSD (Acid), Marijuana/ Hashish, Methamphetamine, Morphine, Ritalin, Valium - Living Situation & Occupation Living situation: Reports: , with Family Occupation: Employed Review of Systems - Review of Systems Review Of Systems: ROS reveals no pertinent complaints other than HPI. ED EXAM, GENERAL - Physical Exam Exam: See Below Exam Limited By: No Limitations General Appearance: Alert, WD/WN, No Apparent Distress Respiratory/Chest: No Respiratory Distress Peripheral Pulses: 3+: Radial (R) Extremities: Normal Capillary Refill, Other (distal Rt 3rd finger with tenderness to palpation, soft tissue swelling, and bruising. No visible deformity. Skin and nail are intact w/small subungual hematoma.) ED TRAUMA EXTREMITY PROCEDURES - Splinting Right 3rd Digit Splint Site: Rt 3rd finger Pre-Procedure NV Status: Normal Post-Procedure NV Status: Normal Splint Material: Aluminum-Foam Splint Design: Other (cage) Applied & Form Fitted By: Nurse Provider Post-Splint Application NV Check: NV Status Normal, Good Position Complications: No Course - Vital Signs Last Recorded V/S: Last Vital Signs Temp 36.7 C 08/10/17 09:42 Pulse 74 08/10/17 09:42 Resp 16 08/10/17 09:42 BP 158/85 H 08/10/17 09:42 Pulse Ox 99 08/10/17 09:42 - Orders/Labs/Meds Orders: Active Orders 24 hr Category Date Time Status Fingers Third Digit Rt F7 [CR] Urgent Exams 08/10/17 09:50 Ordered - Radiology Interpretation Free Text/Narrative:: Xray Rt 3rd finger: no fracture, see Rad. report. Departure - Departure Time of Disposition: 10:18 Disposition: Home, Self-Care 01 Condition: Good Clinical Impression: Contusion of right middle finger Qualifiers: Encounter type: initial encounter Damage to nail status: without damage Qualified Code(s): S60.031A - Contusion of right middle finger without damage to nail, initial encounter Subungual hematoma of finger of right hand Qualifiers: Encounter type: initial encounter Qualified Code(s): S60.10XA - Contusion of unspecified finger with damage to nail, initial encounter - Discharge Information Instructions: Subungual Hematoma, [id number], Contusion, [id number] Forms: ED Department Discharge Additional Instructions: Wear protective finger cage splint until pain resolves. Ice pack and elevate injured finger to reduce pain and swelling. Use Acetaminophen (Tylenol) or Ibuprofen (Advil/Motrin) as needed for pain. Follow package instructions for dosage and precautions. Follow up in clinic if not improving as expected in 7 to 10 days. - My Orders Last 24 Hours: My Active Orders 08/10/17 09:50 Fingers Third Digit Rt F7 [CR] Urgent - Assessment/Plan Last 24 Hours: My Active Orders 08/10/17 09:50 Fingers Third Digit Rt F7 [CR] Urgent
== END 2017-08-10 10:55 | disposition home or self-care (01) ==
LOC: DL.ED 09:36
DX: S60.131A Contusion of right middle finger with damage to nail, initial encounter (principal); E78.00 Pure hypercholesterolemia, unspecified; I10 Essential (primary) hypertension; Z79.899 Other long term (current) drug therapy; Z87.891 Personal history of nicotine dependence; W23.1XXA Caught, crushed, jammed, or pinched between stationary objects, initial encounter
CPT/HCPCS: 73140-F7; 99283

== ENCOUNTER 2017-10-07 12:45 | Emergency (ER) | payer OTHER, MEDICAID ==
[2017-10-07] MEDS ORDERED: Sodium Chloride 0.9% 10 ML Syringe FLUSH PRN (13:08)
[2017-10-07] MEDS ORDERED: Sodium Chloride 0.9% 1,000 ML IV ONE (13:10)
[2017-10-07 13:18] VITALS: BP 136/92
[2017-10-07 13:43] LABS: ANION GAP 11.6; CHLORIDE,CL 107 mmol/L (101-111); SODIUM,NA 140 mmol/L (135-145)
--- NOTE | 2017-10-07 14:49 | EDM.PDOC ---
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 He was seen to lower himself to his knees and slumped forward face down onto the floor for a couple of seconds. Patient believes that he had a brief loss of consciousness. He denies any injury. Patient states as he was bent over working he felt lightheaded and dizzy and woke up on the floor. He denies any chest pain , palpitations, shortness of breath, rapid or irregular heart rate, fever, chills, cough, headache or motor weakness. On arrival to the ER the patient states that he feels back to normal. He does not feel that he is dehydrated. He has no history of syncopal episodes. Onset: Today, Sudden Duration: Resolved Prior to Arrival Location: Reports: Generalized Quality: Reports: Other (denies pain) Severity: Severe Improves with: Reports: None Worsens with: Reports: None Associated Symptoms: Reports: No Other Symptoms Treatments PHLEBOTOMY COORDINATOR: Reports: IV/IO - Related Data Allergies Allergy/AdvReac Type Severity Reaction Status Date / Time No Known Allergies Allergy Verified 03/16/17 16:58 Home Meds: Home Meds QUEtiapine [SEROquel XR] 900 mg PO BEDTIME 05/04/13 [History] Fenofibrate Nanocrystallized [Fenofibrate] 160 mg PO DAILY 04/29/15 [History] Simvastatin [Zocor] 10 mg PO BEDTIME 01/30/17 [History] Past Medical History HEENT History: Reports: Impaired Vision, Other (See Below) Other HEENT History: NEEDS CORRECTIVE LENSES; DOES NOT WEAR PRESENTLY Cardiovascular History: Reports: High Cholesterol, Hypertension Respiratory History: Reports: Asthma, Bronchitis, Recurrent, Pneumothorax, Other (See Below) Other Respiratory History: Collapse lower lung field, left due to punctured wound secondary to [place]; CHEST TUBE PLACEMENT/REMOVED; BORN WITH "SEVERE LUNG INFECTION" Gastrointestinal History: Reports: GERD Genitourinary History: Reports: None Musculoskeletal History: Reports: Back Pain, Chronic, Other (See Below) Other Musculoskeletal History: DDD DEGENERATIVE DISC DISEASE; CARPAL TUNNEL SYNDROME LEFT; TIETZE'S DISEASE(costochondritis) Neurological History: Reports: Concussion, Head Trauma, Migraines Psychiatric History: Reports: Bipolar, Depression Endocrine/Metabolic History: Reports: None Hematologic History: Reports: None Immunologic History: Reports: None Oncologic (Cancer) History: Reports: None Dermatologic History: Reports: None - Infectious Disease History Infectious Disease History: Reports: Chicken Pox - Past Surgical History Head Surgeries/Procedures: Reports: None HEENT Surgical History: Reports: Naso-Sinus Surgery, Tonsillectomy Social & Family History - Family History Family Medical History: Noncontributory - Tobacco Use Smoking Status *Q: Current Every Day Smoker Tobacco Use Within Last Twelve Months: Cigarettes - Caffeine Use Caffeine Use: Reports: Soda - Living Situation & Occupation Living situation: Reports: , with Family Occupation: Employed ED ROS GENERAL - Review of Systems Review Of Systems: ROS reveals no pertinent complaints other than HPI. - Physical Exam Exam: See Below Exam Limited By: No Limitations General Appearance: Alert, WD/WN, No Apparent Distress Eye Exam: Bilateral Eye: EOMI, Normal Inspection, PERRL Ears: Normal External Exam, Normal Canal, Hearing Grossly Normal, Normal TMs Nose: Normal Inspection, Normal Mucosa, No Blood Throat/Mouth: Normal Lips, Normal Oropharynx, Normal Voice. No: Normal Teeth Head Exam: Atraumatic, Normocephalic Neck: Normal Inspection, Supple, Non-Tender, Full Range of Motion. No: Lymphadenopathy (L), Lymphadenopathy (R) Respiratory/Chest: No Respiratory Distress, Lungs Clear, Normal Breath Sounds, No Accessory Muscle Use, Chest Non-Tender Cardiovascular: Normal Peripheral Pulses, Regular Rate, Rhythm, No Edema, No Gallop, No JVD, No Murmur, No Rub GI/Abdominal: Normal Bowel Sounds, Soft, Non-Tender, No Distention, No Abnormal Bruit (Male) Exam: Deferred Rectal (Males) Exam: Deferred Neuro Exam (Abbreviated): Alert, Oriented, CN II-XII Intact, Normal Cognition, Normal Gait, No Motor/Sensory Deficits Back Exam: Normal Inspection, Full Range of Motion, NT Extremities: Normal Inspection, Normal Range of Motion, Non-Tender, No Pedal Edema, Normal Capillary Refill Psychiatric: Normal Affect, Normal Mood Skin Exam: Warm, Dry, Intact, Normal Color, No Rash EKG INTERPRETATION EKG Date: 10/07/17 Time: 13:32 Rhythm: Other (sinus rhythm) Rate (Beats/Min): 73 [place]: Normal P-Wave: Present QRS: Normal ST-T: Normal QT: Normal Comparison: NA - No Prior EKG Course - Vital Signs Last Recorded V/S: Last Vital Signs Temp 37.0 C 10/07/17 13:17 Pulse 83 10/07/17 13:17 Resp 16 10/07/17 13:17 BP 136/92 H 10/07/17 13:17 Pulse Ox 99 10/07/17 13:17 Orthostatic Blood Pressure [ 144/112 Standing] Orthostatic Blood Pressure [ 136/99 Sitting] Orthostatic Blood Pressure [ 149/104 Supine] - Orders/Labs/Meds Orders: Active Orders 24 hr Category Date Time Status Blood Glucose Check, Bedside [] ONETIME Care 10/07/17 13:08 Active EKG 12 Lead [EKG Documentation Completion] [] STAT Care 10/07/17 13:08 Active Peripheral IV Care [] . DIRECTED Care 10/07/17 13:09 Active DRUG SCREEN URINE BIORAD [URCHEM] Stat Lab 10/07/17 14:04 Ordered UA W/MICROSCOPIC [URIN] Stat Lab 10/07/17 14:04 Ordered Sodium Chloride 0.9% [Saline Flush] Med 10/07/17 13:08 Active 10 ml FLUSH ASDIRECTED PRN Peripheral IV Insertion Adult [OM.PC] Stat Oth 10/07/17 13:08 Ordered Medication Orders Sodium Chloride (Saline Flush) 10 ml FLUSH ASDIRECTED PRN PRN Reason: Keep Vein Open Labs: Laboratory Tests 10/07/17 10/07/17 10/07/17 Range/Units 13:18 13:18 13:52 WBC 5.7 (5.0-10.0) 10^3/uL RBC 4.74 (4.6-6.2) 10^6/uL Hgb 15.0 (14.0-18.0) g/dL Hct 42.2 (40.0-54.0) % MCV 89.0 (80-100) fL MCH 31.6 (27.0-34.0) pg MCHC 35.5 H (33.0-35.0) g/dL Plt Count 238 (150-450) 10^3/uL Neut % (Auto) 57.0 (42.2-75.2) % Lymph % (Auto) 27.4 (20.5-50.1) % Cassia % (Auto) 11.9 H (2-8) % Eos % (Auto) 3.2 H (1.0-3.0) % Baso % (Auto) 0.5 (0.0-1.0) % Sodium 140 (135-145) mmol/L Potassium 3.6 (3.6-5.0) mmol/L Chloride 107 (101-111) mmol/L Carbon Dioxide 25.0 (21.0-31.0) mmol/L Anion Gap 11.6 BUN 9 (7-18) mg/dL Creatinine 1.1 (0.6-1.3) mg/dL Est Cr Clr Drug Dosing TNP Estimated GFR (MDRD) > 60 BUN/Creatinine Ratio 8.18 Glucose 101 (74-105) mg/dL POC Glucose 78 (70-105) mg/dl Calcium 9.0 (8.4-10.2) mg/dl Magnesium 1.8 (1.8-2.5) mg/dL Total Bilirubin 0.5 (0.2-1.0) mg/dL AST 28 (10-42) IU/L ALT 24 (10-60) IU/L Alkaline Phosphatase 41 L (42-121) IU/L Troponin I < 0.02 (0.00-0.02) ng/ml Total Protein 7.0 (6.7-8.2) g/dl Albumin 4.3 (3.2-5.5) g/dl Globulin 2.7 Albumin/Globulin Ratio 1.59 Urine Color (YELLOW) Urine Appearance (CLEAR) Urine pH (5.0-9.0) Ur Specific [place] (1.005-1.030) Urine Protein (NEGATIVE) Urine Glucose (UA) (NEGATIVE) Urine Ketones (NEGATIVE) Urine Occult Blood (NEGATIVE) Urine Nitrite (NEGATIVE) Urine Bilirubin (NEGATIVE) Urine Urobilinogen (0.2-1.0) mg/dL Ur Leukocyte Esterase (NEGATIVE) Urine RBC /HPF Urine WBC (0-5/HPF) /HPF Urine Bacteria (0-FEW/HPF) /HPF Urine Mucus /LPF Urine Opiates Screen (NEGATIVE) Ur Oxycodone Screen (NEGATIVE) Urine Methadone Screen (NEGATIVE) Ur Barbiturates Screen (NEGATIVE) U Tricyclic Antidepress (NEGATIVE) Ur Phencyclidine Scrn (NEGATIVE) Ur Amphetamine Screen (NEGATIVE) U Methamphetamines Scrn (NEGATIVE) Urine MDMA Screen (NEGATIVE) U Benzodiazepines Scrn (NEGATIVE) Urine Cocaine Screen (NEGATIVE) U Marijuana (THC) Screen (NEGATIVE) Ethyl Alcohol < 5 mg/dL 10/07/17 10/07/17 Range/Units 14:04 14:04 WBC (5.0-10.0) 10^3/uL RBC (4.6-6.2) 10^6/uL Hgb (14.0-18.0) g/dL Hct (40.0-54.0) % MCV (80-100) fL MCH (27.0-34.0) pg MCHC (33.0-35.0) g/dL Plt Count (150-450) 10^3/uL Neut % (Auto) (42.2-75.2) % Lymph % (Auto) (20.5-50.1) % Cassia % (Auto) (2-8) % Eos % (Auto) (1.0-3.0) % Baso % (Auto) (0.0-1.0) % Sodium (135-145) mmol/L Potassium (3.6-5.0) mmol/L Chloride (101-111) mmol/L Carbon Dioxide (21.0-31.0) mmol/L Anion Gap BUN (7-18) mg/dL Creatinine (0.6-1.3) mg/dL Est Cr Clr Drug Dosing Estimated GFR (MDRD) BUN/Creatinine Ratio Glucose (74-105) mg/dL POC Glucose (70-105) mg/dl Calcium (8.4-10.2) mg/dl Magnesium (1.8-2.5) mg/dL Total Bilirubin (0.2-1.0) mg/dL AST (10-42) IU/L ALT (10-60) IU/L Alkaline Phosphatase (42-121) IU/L Troponin I (0.00-0.02) ng/ml Total Protein (6.7-8.2) g/dl Albumin (3.2-5.5) g/dl Globulin Albumin/Globulin Ratio Urine Color Yellow (YELLOW) Urine Appearance Clear (CLEAR) Urine pH 7.5 (5.0-9.0) Ur Specific [place] 1.020 (1.005-1.030) Urine Protein Negative (NEGATIVE) Urine Glucose (UA) Negative (NEGATIVE) Urine Ketones Negative (NEGATIVE) Urine Occult Blood Negative (NEGATIVE) Urine Nitrite Negative (NEGATIVE) Urine Bilirubin Negative (NEGATIVE) Urine Urobilinogen 0.2 (0.2-1.0) mg/dL Ur Leukocyte Esterase Negative (NEGATIVE) Urine RBC 0-5 /HPF Urine WBC 0-5 (0-5/HPF) /HPF Urine Bacteria Rare (0-FEW/HPF) /HPF Urine Mucus Rare /LPF Urine Opiates Screen Negative (NEGATIVE) Ur Oxycodone Screen Negative (NEGATIVE) Urine Methadone Screen Negative (NEGATIVE) Ur Barbiturates Screen Negative (NEGATIVE) U Tricyclic Antidepress Positive H (NEGATIVE) Ur Phencyclidine Scrn Negative (NEGATIVE) Ur Amphetamine Screen Negative (NEGATIVE) U Methamphetamines Scrn Negative (NEGATIVE) Urine MDMA Screen Negative (NEGATIVE) U Benzodiazepines Scrn Negative (NEGATIVE) Urine Cocaine Screen Negative (NEGATIVE) U Marijuana (THC) Screen Negative (NEGATIVE) Ethyl Alcohol mg/dL Meds: Medications Generic Name Dose Route Start Last Admin Trade Name Freq PRN Reason Stop Dose Admin Sodium Chloride 10 ml 10/07/17 13:08 Saline Flush FLUSH ASDIRECTED PRN Keep Vein Open Discontinued Medications Generic Name Dose Route Start Last Admin Trade Name Freq PRN Reason Stop Dose Admin Sodium Chloride 1,000 mls @ 999 mls/hr 10/07/17 13:10 Normal Saline IV 10/07/17 14:10 .BOLUS ONE - Radiology Interpretation Free Text/Narrative:: [facility] Final Radiology Report Call: [phone] assistance Online chat: [email or web address] Name: REMBERTO JOSE Age: 41Years M Date: 10/07/2017 SSN: -- : [id number] Study: XR CHEST 1 VIEW Requesting Physician: KORY MORALES Images: 1 Addl Studies: Provided Clinical History: Contrast: Contrast Medium: Contrast Amount: Contrast Method: Page 1 of 2 EXAM: XR Chest, 1 View EXAM DATE/TIME: Examination ordered on 10/07/2017 1:22 PM CLINICAL HISTORY: The patient is a 41 years old male; Signs and symptoms; Other: Chest pain TECHNIQUE: Frontal view of the chest. COMPARISON: CR - Chest 1V Frontal 2017-01-01 23:04 FINDINGS: Lungs: Lungs are clear bilaterally. Pleural space: No pleural effusion. No pneumothorax. Heart: Cardiac silhouette is unremarkable. Mediastinum: Unremarkable. Bones/joints: Unremarkable. IMPRESSION: - Unremarkable chest radiograph. THANK YOU FOR THIS CONSULTATION. Thank you for allowing us to participate in the care of your patient. REMBERTO JOSE | Final Radiology Report CONFIDENTIALITY STATEMENT This report is intended only for use by the referring physician, and only in accordance with law. If you received this in error, call [phone]. Page 2 of 2 Dictated and Authenticated by: Diana Larose MD 10/07/2017 2:02 PM Departure - Departure Time of Disposition: 14:47 Disposition: Home, Self-Care 01 Condition: Good Clinical Impression: Hypertension, uncontrolled Syncope Qualifiers: Syncope type: unspecified Qualified Code(s): R55 - Syncope and collapse - Discharge Information Instructions: Syncope, [id number], Hypertension, [id number] Forms: ED Department Discharge Additional Instructions: Rx: Atenolol 25mg Rest today, and drink plenty of water. Follow up in clinic this week for recheck. - My Orders Last 24 Hours: My Active Orders 10/07/17 13:08 Blood Glucose Check, Bedside [RC] ONETIME EKG 12 Lead [EKG Documentation Completion] [RC] STAT Sodium Chloride 0.9% [Saline Flush] 10 ml FLUSH ASDIRECTED PRN Peripheral IV Insertion Adult [OM.PC] Stat 10/07/17 13:09 Peripheral IV Care [RC] . DIRECTED 10/07/17 14:04 DRUG SCREEN URINE BIORAD [URCHEM] Stat UA W/MICROSCOPIC [URIN] Stat - Assessment/Plan Last 24 Hours: My Active Orders 10/07/17 13:08 Blood Glucose Check, Bedside [RC] ONETIME EKG 12 Lead [EKG Documentation Completion] [RC] STAT Sodium Chloride 0.9% [Saline Flush] 10 ml FLUSH ASDIRECTED PRN Peripheral IV Insertion Adult [OM.PC] Stat 10/07/17 13:09 Peripheral IV Care [] . DIRECTED 10/07/17 14:04 DRUG SCREEN URINE BIORAD [URCHEM] Stat UA W/MICROSCOPIC [URIN] Stat I have read and agree with the documentation that has been completed regarding this visit. By signing this record, I attest that the documentation was completed in my physical presence and is an accurate record of the encounter.
== END 2017-10-07 15:04 | disposition home or self-care (01) ==
LOC: DL.ED 12:45
DX: R55 Syncope and collapse (principal); I10 Essential (primary) hypertension; F17.210 Nicotine dependence, cigarettes, uncomplicated; E78.00 Pure hypercholesterolemia, unspecified; Z79.899 Other long term (current) drug therapy
CPT/HCPCS: 36415; 71045; 80053; 80305; 81001; 82962; 83735; 84484; 85025; 93005; 99284; G0480

== ENCOUNTER 2018-05-31 21:08 | Emergency (ER) | payer MEDICAID ==
[2018-05-31] MEDS ORDERED: Sodium Chloride 0.9% 10 ML Syringe FLUSH PRN (21:23)
[2018-05-31] MEDS ORDERED: Ondansetron 4 MG/2 ML SDV IV ONE (21:25)
[2018-05-31] MEDS ORDERED: Morphine 4 MG/ML Syringe IVPUSH ONE (21:25)
[2018-05-31] MEDS: Nitroglycerin 0.4 MG Tab.SL SL ONE ×2 (21:33→21:44)
[2018-05-31] MEDS ORDERED: Nitroglycerin 0.4 MG Tab.SL SL ONE (21:43)
[2018-05-31] MEDS ORDERED: GI Cocktail Oral Solution 30 ML PO ONE (21:44)
[2018-05-31 21:45] VITALS: BP 122/76
[2018-05-31 21:51] LABS: CHLORIDE,CL 106 mmol/L (101-111); SODIUM,NA 137 mmol/L (135-145)
--- NOTE | 2018-06-01 00:16 | EDM.PDOC ---
ED HPI GENERAL MEDICAL PROBLEM - General Chief Complaint: Cardiovascular Problem Stated Complaint: AMBULANCE, CHEST PAIN Time Seen by Provider: 05/31/18 21:16 Source of Information: Reports: Patient, EMS - History of Present Illness INITIAL COMMENTS - FREE TEXT/NARRATIVE: Patient comes via ambulance from home with concerns of chest pain. EMS alerted us to a STEMI prior to his arrival. The patient has had chest pain since about 1 :00 this afternoon. The pain was sharp shooting stabbing intermittent and squeezing midsternal. The pain comes and goes on its own. It radiates up to his neck and shoulder. He initially thought it was heartburn. He did try to eat some food that did not help his pain. 5:00 his pain got much worse. He had no shortness of breath weakness dizziness lightheadedness. No shortness of breath or difficulty breathing. No diaphoresis. No nausea no vomiting. No abdominal pain. No black tarry stools. No palpitations. He's never had any cardiac issues in the past. He was given 324 of aspirin and 1 nitroglycerin prior to arrival which may have improved his pain but the patient's unsure. Treatments MARKETING INFORMATION ANALYST: Reports: Aspirin, Nitroglycerin Middle Chest Pain Score (Numeric/FACES): 7 - Related Data Allergies Allergy/AdvReac Type Severity Reaction Status Date / Time No Known Allergies Allergy Verified 03/16/17 16:58 Home Meds: Home Meds QUEtiapine [SEROquel XR] 900 mg PO BEDTIME 05/04/13 [History] Fenofibrate Nanocrystallized [Fenofibrate] 160 mg PO DAILY 04/29/15 [History] Simvastatin [Zocor] 10 mg PO BEDTIME 01/30/17 [History] Atenolol 50 mg PO DAILY 05/31/18 [History] Budesonide [Pulmicort] 1 applic INH QID PRN 05/31/18 [History] Meloxicam 7.5 mg PO DAILY 05/31/18 [History] Past Medical History HEENT History: Reports: Impaired Vision, Other (See Below) Other HEENT History: NEEDS CORRECTIVE LENSES; DOES NOT WEAR PRESENTLY Cardiovascular History: Reports: High Cholesterol, Hypertension Respiratory History: Reports: Asthma, Bronchitis, Recurrent, Pneumothorax, Other (See Below) Other Respiratory History: Collapse lower lung field, left due to punctured wound secondary to [facility]; CHEST TUBE PLACEMENT/REMOVED; BORN WITH "SEVERE LUNG INFECTION" Gastrointestinal History: Reports: GERD Genitourinary History: Reports: None Musculoskeletal History: Reports: Back Pain, Chronic, Other (See Below) Other Musculoskeletal History: DDD DEGENERATIVE DISC DISEASE; CARPAL TUNNEL SYNDROME LEFT; TIETZE'S DISEASE(costochondritis) Neurological History: Reports: Concussion, Head Trauma, Migraines Psychiatric History: Reports: Bipolar, Depression Endocrine/Metabolic History: Reports: None Hematologic History: Reports: None Immunologic History: Reports: None Oncologic (Cancer) History: Reports: None Dermatologic History: Reports: None - Infectious Disease History Infectious Disease History: Reports: Chicken Pox - Past Surgical History Head Surgeries/Procedures: Reports: None HEENT Surgical History: Reports: Naso-Sinus Surgery, Tonsillectomy Social & Family History - Family History Family Medical History: Noncontributory - Tobacco Use Smoking Status *Q: Current Every Day Smoker Years of Tobacco use: 31 Packs/Tins Daily: 0.5 Used Tobacco, but Quit: No Second Hand Smoke Exposure: Yes - Caffeine Use Caffeine Use: Reports: Coffee, Soda Caffeine Use Comment: occassional - Recreational Drug Use Recreational Drug Use: Yes Drug Use in Last 12 Months: No - Living Situation & Occupation Living situation: Reports: , with Family Occupation: Employed ED ROS GENERAL - Review of Systems Review Of Systems: ROS reveals no pertinent complaints other than HPI. ED EXAM, GENERAL - Physical Exam Exam: See Below Exam Limited By: No Limitations General Appearance: Alert, WD/WN, No Apparent Distress Eye Exam: Bilateral Eye: Normal Inspection Ears: Normal External Exam, Normal TMs Nose: Normal Inspection, No Blood Throat/Mouth: Normal Inspection, Normal Lips, Normal Teeth, Normal Voice Head: Atraumatic, Normocephalic Neck: Normal Inspection, Supple Respiratory/Chest: No Respiratory Distress, Lungs Clear, Normal Breath Sounds, No Accessory Muscle Use, Chest Non-Tender Cardiovascular: Normal Peripheral Pulses, Regular Rate, Rhythm, No Edema, No JVD , No Murmur, No Rub Peripheral Pulses: 2+: Radial (L), Radial (R), Posterior Tibial (L), Posterior Tibial (R), Dorsalis Pedis (L), Dorsalis Pedis (R) GI/Abdominal: Normal Bowel Sounds, Soft, Non-Tender, No Abnormal Bruit, Pelvis Stable (Male) Exam: Deferred Rectal (Males) Exam: Deferred Back Exam: Normal Inspection Extremities: Normal Inspection, Normal Range of Motion, Non-Tender, Normal Capillary Refill Neurological: Alert, Oriented, Normal Cognition, No Motor/Sensory Deficits Psychiatric: Normal Affect, Normal Mood Skin Exam: Warm, Dry, Intact, Normal Color, No Rash Lymphatic: No Adenopathy EKG INTERPRETATION EKG Date: 05/31/18 Time: 21:13 Rhythm: NSR Rate (Beats/Min): 61 [place]: Normal P-Wave: Present QRS: Normal ST-T: Normal QT: Normal Course - Vital Signs Last Recorded V/S: Last Vital Signs Temp 36.7 C 05/31/18 21:24 Pulse 61 05/31/18 21:24 Resp 18 05/31/18 21:24 BP 122/76 05/31/18 21:44 Pulse Ox 99 05/31/18 21:24 - Orders/Labs/Meds Orders: Active Orders 24 hr Category Date Time Status EKG 12 Lead [EKG Documentation Completion] [] URGENT Care 05/31/18 21:23 Active Peripheral IV Care [RC] . DIRECTED Care 05/31/18 21:24 Active Sodium Chloride 0.9% [Saline Flush] Med 05/31/18 21:23 Active 10 ml FLUSH ASDIRECTED PRN Peripheral IV Insertion Adult [OM.PC] Stat Oth 05/31/18 21:23 Ordered Medication Orders Sodium Chloride (Saline Flush) 10 ml FLUSH ASDIRECTED PRN PRN Reason: Keep Vein Open Last Admin: 05/31/18 21:44 Dose: 10 ml Labs: Laboratory Tests 05/31/18 05/31/18 05/31/18 Range/Units 21:25 21:25 21:25 WBC 12.8 H (5.0-10.0) 10^3/uL RBC 4.53 L (4.6-6.2) 10^6/uL Hgb 14.4 (14.0-18.0) g/dL Hct 41.5 (40.0-54.0) % MCV 91.6 (80-100) fL MCH 31.8 (27.0-34.0) pg MCHC 34.7 (33.0-35.0) g/dL Plt Count 280 (150-450) 10^3/uL Neut % (Auto) 57.9 (42.2-75.2) % Lymph % (Auto) 27.3 (20.5-50.1) % [place] % (Auto) 10.8 H (2-8) % Eos % (Auto) 3.6 H (1.0-3.0) % Baso % (Auto) 0.4 (0.0-1.0) % PT 10.5 (9.0-12.0) SEC INR 1.1 (0.9-1.2) APTT 25.2 (22.0-34.0) SEC Sodium 137 (135-145) mmol/L Potassium 4.0 (3.6-5.0) mmol/L Chloride 106 (101-111) mmol/L Carbon Dioxide 21.0 (21.0-31.0) mmol/L Anion Gap 14.0 BUN 43 H D (7-18) mg/dL Creatinine 1.8 H (0.6-1.3) mg/dL Est Cr Clr Drug Dosing 58.08 mL/min Estimated GFR (MDRD) 41 BUN/Creatinine Ratio 23.88 Glucose 96 (74-105) mg/dL Calcium 8.6 (8.4-10.2) mg/dl Total Bilirubin 0.7 (0.2-1.0) mg/dL AST 21 (10-42) IU/L ALT 21 (10-60) IU/L Alkaline Phosphatase 33 L (42-121) IU/L Troponin I < 0.02 (0.00-0.02) ng/ml Total Protein 6.9 (6.7-8.2) g/dl Albumin 4.0 (3.2-5.5) g/dl Globulin 2.9 Albumin/Globulin Ratio 1.38 06/01/18 Range/Units 01:05 WBC (5.0-10.0) 10^3/uL RBC (4.6-6.2) 10^6/uL Hgb (14.0-18.0) g/dL Hct (40.0-54.0) % MCV (80-100) fL MCH (27.0-34.0) pg MCHC (33.0-35.0) g/dL Plt Count (150-450) 10^3/uL Neut % (Auto) (42.2-75.2) % Lymph % (Auto) (20.5-50.1) % [place] % (Auto) (2-8) % Eos % (Auto) (1.0-3.0) % Baso % (Auto) (0.0-1.0) % PT (9.0-12.0) SEC INR (0.9-1.2) APTT (22.0-34.0) SEC Sodium (135-145) mmol/L Potassium (3.6-5.0) mmol/L Chloride (101-111) mmol/L Carbon Dioxide (21.0-31.0) mmol/L Anion Gap BUN (7-18) mg/dL Creatinine (0.6-1.3) mg/dL Est Cr Clr Drug Dosing mL/min Estimated GFR (MDRD) BUN/Creatinine Ratio Glucose (74-105) mg/dL Calcium (8.4-10.2) mg/dl Total Bilirubin (0.2-1.0) mg/dL AST (10-42) IU/L ALT (10-60) IU/L Alkaline Phosphatase (42-121) IU/L Troponin I < 0.02 (0.00-0.02) ng/ml Total Protein (6.7-8.2) g/dl Albumin (3.2-5.5) g/dl Globulin Albumin/Globulin Ratio Meds: Medications Generic Name Dose Route Start Last Admin Trade Name Freq PRN Reason Stop Dose Admin Sodium Chloride 10 ml 05/31/18 21:23 05/31/18 21:44 Saline Flush FLUSH 10 ml ASDIRECTED PRN Administration Keep Vein Open Discontinued Medications Generic Name Dose Route Start Last Admin Trade Name Freq PRN Reason Stop Dose Admin Al Hydroxide/Mg Hydroxide 30 ml 05/31/18 21:44 05/31/18 21:54 Gi Cocktail PO 05/31/18 21:45 30 ml ONETIME ONE Administration Morphine Sulfate 4 mg 05/31/18 21:25 05/31/18 21:36 Morphine IVPUSH 05/31/18 21:26 4 mg ONETIME ONE Administration Nitroglycerin 0.4 mg 05/31/18 21:24 05/31/18 21:44 Nitrostat SL 05/31/18 21:25 0.4 mg ONETIME ONE Administration Nitroglycerin 0.4 mg 05/31/18 21:43 05/31/18 21:45 Nitrostat SL 05/31/18 21:44 Not Given ONETIME ONE Ondansetron HCl 4 mg 05/31/18 21:25 05/31/18 21:34 Zofran IV 05/31/18 21:26 4 mg ONETIME ONE Administration - Radiology Interpretation Free Text/Narrative:: Chest x-ray per radiology shows minimal atelectasis. - Re-Assessments/Exams Free Text/Narrative Re-Assessment/Exam: 06/01/18 00:14 Patient initially was given a repeat dose of nitroglycerin which did not do much for his pain. He was given 4 mg Zofran IV push. He was given 4 mg morphine IV push. Repeat dose Nitroglycerin really did not improve his pain and he still stays at a 7 out of 10. EKG shows no sign of a STEMI on arrival. And as I review the EKGs from the ambulance I really have little concern for ST elevation as well. I did have the EKGs faxed to the magnetic healer in [place] who is in agreement with me and is unconcerned for a STEMI at this time the magnetic healer name was Dr. Polo. Patient was given a GI cocktail that improved his pain the most down to a 3/10. Repeat troponin at the 4 hours and he was observed until that time. 06/01/18 01:37 Repeat troponin is still 0.02. Patient feels much better. His pain is a 1-2. This is really more of a presentation of GERD or heartburn type symptomatology. His cardiac enzymes as well as EKG are negative. We will send him home with some omeprazole. Maalox Mylanta for acute symptoms. He is comfortable with this plan and his questions are answered. Departure - Departure Time of Disposition: 01:35 Disposition: Home, Self-Care 01 Clinical Impression: Non-cardiac chest pain GERD (gastroesophageal reflux disease) Qualifiers: Esophagitis presence: with esophagitis Qualified Code(s): K21.0 - Gastro- esophageal reflux disease with esophagitis Instructions: Gastroesophageal Reflux Disease, Adult, [id number], Nonspecific Chest Pain Forms: ED Department Discharge Additional Instructions: Continue home therapies. Maalox Mylanta for acute symptoms of heartburn. Omeprazole 1 tablet daily for the next 28 day Rx given to the patient. Return to emergency department for worsening symptoms. Recheck with her primary care provider next 4-6 days if not improving sooner if worse. - My Orders Last 24 Hours: My Active Orders 05/31/18 21:23 EKG 12 Lead [EKG Documentation Completion] [RC] URGENT Sodium Chloride 0.9% [Saline Flush] 10 ml FLUSH ASDIRECTED PRN Peripheral IV Insertion Adult [OM.PC] Stat 05/31/18 21:24 Peripheral IV Care [RC] . DIRECTED - Assessment/Plan Last 24 Hours: My Active Orders 05/31/18 21:23 EKG 12 Lead [EKG Documentation Completion] [RC] URGENT Sodium Chloride 0.9% [Saline Flush] 10 ml FLUSH ASDIRECTED PRN Peripheral IV Insertion Adult [OM.PC] Stat 05/31/18 21:24 Peripheral IV Care [RC] . DIRECTED Assessment:: None cardiac chest pain GERD Plan: Continue home therapies. Maalox Mylanta for acute symptoms of heartburn. Omeprazole 1 tablet daily for the next 28 day Rx given to the patient. Return to emergency department for worsening symptoms. Recheck with her primary care provider next 4-6 days if not improving sooner if worse.
[2018-06-01] MEDS ORDERED: Omeprazole 20 MG Cap.CR PO ONE (01:38)
== END 2018-06-01 01:49 | disposition home or self-care (01) ==
LOC: DL.ED 21:08
DX: K21.0 Gastro-esophageal reflux disease with esophagitis (principal); R07.89 Other chest pain; I10 Essential (primary) hypertension; F17.210 Nicotine dependence, cigarettes, uncomplicated; Z79.899 Other long term (current) drug therapy; Z98.890 Other specified postprocedural states
CPT/HCPCS: 36415; 71045; 80053; 84484; 85025; 85610; 85730; 93005; 96374; 96375; 99285; A9270; J2270; J2405

== ENCOUNTER 2019-05-30 14:53 | Emergency (ER) | payer MEDICAID ==
[2019-05-30 15:28] VITALS: BP 133/101; PULSE 110
[2019-05-30 16:29] LABS: CHLORIDE,CL 103 mmol/L (101-111); SODIUM,NA 139 mmol/L (135-145)
--- NOTE | 2019-05-30 19:11 | EDM.PDOC ---
ED HPI GENERAL MEDICAL PROBLEM - General Chief Complaint: Medication Administration Stated Complaint: bipolar mix up meds Time Seen by Provider: 05/30/19 15:50 Source of Information: Reports: Patient History Limitations: Reports: No Limitations - History of Present Illness INITIAL COMMENTS - FREE TEXT/NARRATIVE: This 43 yo male patient reports to the ED due to running out of his medications for the past 2 weeks. The patient reports he was advised to come to the ED to check for Pancreatitis due to being off his medications for that amount of time. A call to the patient's pharmacy demonstrates that the patient's prescription medications were refilled. The patient reports he has been having difficulties keeping food and drink down for the past 2-3 days. Duration: Day(s):, Constant, Getting Worse Location: Reports: Generalized Quality: Reports: Pressure Severity: Moderate Improves with: Reports: None Worsens with: Reports: None Context: Reports: Other Associated Symptoms: Reports: Nausea/Vomiting Right Headache Pain Score (Numeric/FACES): 9 - Related Data Allergies Allergy/AdvReac Type Severity Reaction Status Date / Time No Known Allergies Allergy Verified 05/31/19 00:33 Home Meds: Home Meds QUEtiapine [SEROquel XR] 200 mg PO BEDTIME 05/04/13 [History] Fenofibrate Nanocrystallized [Fenofibrate] 160 mg PO DAILY 04/29/15 [History] Simvastatin [Zocor] 10 mg PO BEDTIME 01/30/17 [History] Budesonide [Pulmicort] 1 applic INH QID PRN 05/31/18 [History] Meloxicam 7.5 mg PO DAILY 05/31/18 [History] atenoloL [Atenolol] 50 mg PO DAILY 05/31/18 [History] Divalproex Sodium [Divalproex Sodium ER] 250 mg PO DAILY 05/30/19 [History] Past Medical History HEENT History: Reports: Impaired Vision, Other (See Below) Other HEENT History: NEEDS CORRECTIVE LENSES; DOES NOT WEAR PRESENTLY Cardiovascular History: Reports: High Cholesterol, Hypertension Respiratory History: Reports: Asthma, Bronchitis, Recurrent, Pneumothorax, Other (See Below) Other Respiratory History: Collapse lower lung field, left due to punctured wound secondary to [place]; CHEST TUBE PLACEMENT/REMOVED; BORN WITH "SEVERE LUNG INFECTION" Gastrointestinal History: Reports: GERD Genitourinary History: Reports: None Musculoskeletal History: Reports: Back Pain, Chronic, Other (See Below) Other Musculoskeletal History: DDD DEGENERATIVE DISC DISEASE; CARPAL TUNNEL SYNDROME LEFT; TIETZE'S DISEASE(costochondritis) Neurological History: Reports: Concussion, Head Trauma, Migraines Psychiatric History: Reports: Bipolar, Depression Endocrine/Metabolic History: Reports: None Hematologic History: Reports: None Immunologic History: Reports: None Oncologic (Cancer) History: Reports: None Dermatologic History: Reports: None - Infectious Disease History Infectious Disease History: Reports: Chicken Pox - Past Surgical History Head Surgeries/Procedures: Reports: None HEENT Surgical History: Reports: Naso-Sinus Surgery, Tonsillectomy Social & Family History - Family History Family Medical History: Noncontributory - Tobacco Use Smoking Status *Q: Current Every Day Smoker Years of Tobacco use: 30 Packs/Tins Daily: 1 - Caffeine Use Caffeine Use: Reports: Soda Caffeine Use Comment: occassional - Recreational Drug Use Recreational Drug Use: No - Living Situation & Occupation Living situation: Reports: , with Family Occupation: Employed ED ROS GENERAL - Review of Systems Review Of Systems: Comprehensive ROS is negative, except as noted in HPI. ED EXAM, GENERAL - Physical Exam Exam: See Below Exam Limited By: No Limitations General Appearance: Alert, WD/WN, Moderate Distress Eye Exam: Bilateral Eye: EOMI, Normal Inspection, PERRL Ears: Normal External Exam, Normal Canal, Hearing Grossly Normal, Normal TMs Nose: Normal Inspection, Normal Mucosa, No Blood Throat/Mouth: Normal Inspection, Normal Lips, Normal Teeth, Normal Gums, Normal Oropharynx, Normal Voice, No Airway Compromise Head: Atraumatic, Normocephalic Neck: Normal Inspection, Supple, Non-Tender, Full Range of Motion Respiratory/Chest: No Respiratory Distress, Lungs Clear, Normal Breath Sounds, No Accessory Muscle Use, Chest Non-Tender Cardiovascular: Normal Peripheral Pulses, Regular Rate, Rhythm, No Edema, No Gallop, No JVD, No Murmur, No Rub GI/Abdominal: Normal Bowel Sounds, No Organomegaly, No Distention, No Abnormal Bruit, No Mass, Pelvis Stable, Tender (generalized tenderness) (Male) Exam: Deferred Rectal (Males) Exam: Deferred Back Exam: Normal Inspection, Full Range of Motion, NT Extremities: Normal Inspection, Normal Range of Motion, Non-Tender, Normal Capillary Refill, No Pedal Edema Neurological: Alert, Oriented, CN II-XII Intact Psychiatric: Anxious Skin Exam: Warm, Dry, Intact, Normal Color, No Rash Lymphatic: No Adenopathy Course - Vital Signs Last Recorded V/S: Last Vital Signs Temp 37.1 C 05/30/19 15:18 Pulse 110 H 05/30/19 15:18 Resp 18 05/30/19 15:18 BP 133/101 H 05/30/19 15:18 Pulse Ox 95 05/30/19 15:18 - Orders/Labs/Meds Labs: Laboratory Tests 05/30/19 05/30/19 05/30/19 Range/Units 16:03 16:03 16:03 WBC 11.0 H (5.0-10.0) 10^3/uL RBC 5.52 (4.6-6.2) 10^6/uL Hgb 17.8 D (14.0-18.0) g/dL Hct 48.5 (40.0-54.0) % MCV 87.9 D (80-100) fL MCH 32.2 (27.0-34.0) pg MCHC 36.7 H (33.0-35.0) g/dL Plt Count 282 (150-450) 10^3/uL Neut % (Auto) 71.6 (42.2-75.2) % Lymph % (Auto) 20.9 (20.5-50.1) % [place] % (Auto) 6.6 (2-8) % Eos % (Auto) 0.5 L (1.0-3.0) % Baso % (Auto) 0.4 (0.0-1.0) % Sodium 139 (135-145) mmol/L Potassium 4.0 (3.6-5.0) mmol/L Chloride 103 (101-111) mmol/L Carbon Dioxide 26.0 (21.0-31.0) mmol/L Anion Gap 14.0 BUN 13 D (7-18) mg/dL Creatinine 0.9 (0.6-1.3) mg/dL Est Cr Clr Drug Dosing 114.96 mL/min Estimated GFR (MDRD) > 60 BUN/Creatinine Ratio 14.44 Glucose 114 H (74-105) mg/dL Calcium 9.7 (8.4-10.2) mg/dl Total Bilirubin 1.2 H (0.2-1.0) mg/dL AST 24 (10-42) IU/L ALT 24 (10-60) IU/L Alkaline Phosphatase 50 (42-121) IU/L Total Protein 8.5 H (6.7-8.2) g/dl Albumin 5.4 (3.2-5.5) g/dl Globulin 3.1 Albumin/Globulin Ratio 1.74 Amylase 56 (28-100) U/L Lipase 32 (22-51) U/L Departure - Departure Time of Disposition: 16:28 Disposition: Against Medical Advice 07 Condition: Undetermined Clinical Impression: Nonadherence to medication - Discharge Information *PRESCRIPTION DRUG MONITORING PROGRAM REVIEWED*: Not Applicable *COPY OF PRESCRIPTION DRUG MONITORING REPORT IN PATIENT SHANIKA: Not Applicable Referrals: Tiana Lazo NP [Primary Care Provider] - Forms: ED Department Discharge Care Plan Goals: The patient left prior to getting lab results against medical advice. Sepsis Event Note - Evaluation Sepsis Screening Result: No Definite Risk - Focused Exam Date Exam was Performed: 06/02/19 Time Exam was Performed: 07:42
== END 2019-05-30 16:30 | disposition left against medical advice (07) ==
LOC: DL.ED 14:53
DX: Z91.19 Patient's noncompliance with other medical treatment and regimen (principal); I10 Essential (primary) hypertension; F17.210 Nicotine dependence, cigarettes, uncomplicated; Z79.899 Other long term (current) drug therapy
CPT/HCPCS: 36415; 80053; 82150; 83690; 85025; 99284

== ENCOUNTER 2019-05-31 00:27 | Emergency (ER) | payer MEDICAID ==
[2019-05-31] MEDS ORDERED: hydrOXYzine HCl 25 MG Tab PO ONE (00:28)
[2019-05-31 00:38] VITALS: BP 143/98; PULSE 104
--- NOTE | 2019-05-31 01:32 | EDM.PDOC ---
ED HPI GENERAL MEDICAL PROBLEM - General Chief Complaint: General Stated Complaint: AMBULANCE Time Seen by Provider: 05/31/19 00:35 Source of Information: Reports: Patient History Limitations: Reports: No Limitations - History of Present Illness INITIAL COMMENTS - FREE TEXT/NARRATIVE: ED with c/o feeling shaky. States mixed bipolar disorder and on many medication , Describes shortage or wong in medication of seroquel and of valproic acid, States seen by mental health yesterday, restarted on these at 1/3 dose. Temporal Headache Pain Score (Numeric/FACES): 7 - Related Data Allergies Allergy/AdvReac Type Severity Reaction Status Date / Time No Known Allergies Allergy Verified 05/31/19 00:33 Home Meds: Home Meds QUEtiapine [SEROquel XR] 200 mg PO BEDTIME 05/04/13 [History] Fenofibrate Nanocrystallized [Fenofibrate] 160 mg PO DAILY 04/29/15 [History] Simvastatin [Zocor] 10 mg PO BEDTIME 01/30/17 [History] Budesonide [Pulmicort] 1 applic INH QID PRN 05/31/18 [History] Meloxicam 7.5 mg PO DAILY 05/31/18 [History] atenoloL [Atenolol] 50 mg PO DAILY 05/31/18 [History] Divalproex Sodium [Divalproex Sodium ER] 250 mg PO DAILY 05/30/19 [History] Past Medical History HEENT History: Reports: Impaired Vision, Other (See Below) Other HEENT History: NEEDS CORRECTIVE LENSES; DOES NOT WEAR PRESENTLY Cardiovascular History: Reports: High Cholesterol, Hypertension Respiratory History: Reports: Asthma, Bronchitis, Recurrent, Pneumothorax, Other (See Below) Other Respiratory History: Collapse lower lung field, left due to punctured wound secondary to [place]; CHEST TUBE PLACEMENT/REMOVED; BORN WITH "SEVERE LUNG INFECTION" Gastrointestinal History: Reports: GERD Genitourinary History: Reports: None Musculoskeletal History: Reports: Back Pain, Chronic, Other (See Below) Other Musculoskeletal History: DDD DEGENERATIVE DISC DISEASE; CARPAL TUNNEL SYNDROME LEFT; TIETZE'S DISEASE(costochondritis) Neurological History: Reports: Concussion, Head Trauma, Migraines Psychiatric History: Reports: Bipolar, Depression Endocrine/Metabolic History: Reports: None Hematologic History: Reports: None Immunologic History: Reports: None Oncologic (Cancer) History: Reports: None Dermatologic History: Reports: None - Infectious Disease History Infectious Disease History: Reports: Chicken Pox - Past Surgical History Head Surgeries/Procedures: Reports: None HEENT Surgical History: Reports: Naso-Sinus Surgery, Tonsillectomy Social & Family History - Family History Family Medical History: Noncontributory - Tobacco Use Smoking Status *Q: Heavy Tobacco Smoker Years of Tobacco use: 32 Packs/Tins Daily: 1 - Caffeine Use Caffeine Use: Reports: Soda Caffeine Use Comment: occassional - Recreational Drug Use Recreational Drug Use: No - Living Situation & Occupation Living situation: Reports: , with Family Occupation: Employed ED ROS GENERAL - Review of Systems Review Of Systems: Comprehensive ROS is negative, except as noted in HPI. ED EXAM, GENERAL - Physical Exam Exam: See Below Exam Limited By: No Limitations General Appearance: Alert, No Apparent Distress Ears: Normal External Exam, Hearing Grossly Normal Nose: Normal Mucosa Throat/Mouth: Normal Inspection Head: Atraumatic, Normocephalic Neck: Normal Inspection, Full Range of Motion Respiratory/Chest: No Respiratory Distress, Lungs Clear, Normal Breath Sounds Cardiovascular: Normal Peripheral Pulses, Regular Rate, Rhythm GI/Abdominal: Normal Bowel Sounds, Soft, Non-Tender Extremities: Normal Range of Motion Neurological: Alert, Oriented, Normal Cognition, Normal Reflexes Psychiatric: Normal Affect, Normal Mood Skin Exam: Warm, Dry, Intact, Normal Color Course - Vital Signs Last Recorded V/S: Last Vital Signs Temp 97.4 F 05/31/19 00:33 Pulse 104 H 05/31/19 00:33 Resp 18 05/31/19 00:33 BP 143/98 H 05/31/19 00:33 Pulse Ox 96 05/31/19 00:33 - Orders/Labs/Meds Meds: Medications Discontinued Medications Generic Name Dose Route Start Last Admin Trade Name Freq PRN Reason Stop Dose Admin Hydroxyzine HCl Confirm 05/31/19 01:33 Atarax Administered 05/31/19 01:34 Dose 25 mg .ROUTE .STK-MED ONE Hydroxyzine HCl Confirm 05/31/19 01:39 Atarax Administered 05/31/19 01:40 Dose 25 mg .ROUTE .STK-MED ONE Departure - Departure Time of Disposition: 01:27 Disposition: Home, Self-Care 01 Condition: Good Clinical Impression: Anxiety about health, Bipolar mixed affective disorder, moderate - Discharge Information *PRESCRIPTION DRUG MONITORING PROGRAM REVIEWED*: No *COPY OF PRESCRIPTION DRUG MONITORING REPORT IN PATIENT SHANIKA: No Instructions: Living With Bipolar Disorder Forms: ED Department Discharge Additional Instructions: take medications as prescribed avoid alcohol avoid caffeine avoid stimulants Hydroxyzine 25mg every 6 hours needed for severe anxiety #10 Follow up with mental [facility]ier[facility] provider on Sunday Sepsis Event Note - Evaluation Sepsis Screening Result: No Definite Risk - Focused Exam Vital Signs: Vital Signs Temp Pulse Resp BP Pulse Ox 05/31/19 00:33 97.4 F 104 H 18 143/98 H 96 Date Exam was Performed: 05/31/19 Time Exam was Performed: 06:32
[2019-05-31] MEDS ORDERED: hydrOXYzine HCl 25 MG Tab ONE ×2 (01:33→01:39)
== END 2019-05-31 01:43 | disposition home or self-care (01) ==
LOC: DL.ED 00:27
DX: F31.62 Bipolar disorder, current episode mixed, moderate (principal); I10 Essential (primary) hypertension; E78.00 Pure hypercholesterolemia, unspecified; J45.909 Unspecified asthma, uncomplicated; F17.210 Nicotine dependence, cigarettes, uncomplicated; Z79.51 Long term (current) use of inhaled steroids; Z79.899 Other long term (current) drug therapy
CPT/HCPCS: 99285; A9270-GY

== ENCOUNTER 2020-08-15 19:38 | Emergency (ER) | payer MEDICAID ==
[2020-08-15 19:55] VITALS: BP 161/106; PULSE 97
== END 2020-08-15 22:10 | disposition left against medical advice (07) ==
LOC: DL.ED 19:38
DX: Z53.21 Procedure and treatment not carried out due to patient leaving prior to being seen by health care provider (principal)

== ENCOUNTER 2020-09-28 10:31 | Emergency (ER) | payer OTHER, MEDICAID ==
[2020-09-28 10:55] VITALS: BP 141/85; PULSE 110
[2020-09-28] MEDS ORDERED: traMADol 50 MG Tab PO ONE (11:41)
[2020-09-28] MEDS ORDERED: methylPREDNISolone Sodium Succinate 40 MG/1 ML SDV IM ONE (11:42)
[2020-09-28] MEDS ORDERED: Pantoprazole 40 MG Tab.CR PO ONE (11:44)
--- NOTE | 2020-09-28 11:50 | EDM.PDOC ---
ED HPI GENERAL MEDICAL PROBLEM - General Chief Complaint: Back Pain or Injury Stated Complaint: SLIPPED AT WORK / BACK PAIN Time Seen by Provider: 09/28/20 11:20 Source of Information: Reports: Patient, Old Records, RN, RN Notes Reviewed History Limitations: Reports: No Limitations - History of Present Illness INITIAL COMMENTS - FREE TEXT/NARRATIVE: Filipe is a 44 y/o male who presents to the ED via personal vehicle with complaints of midback pain following an unwitnessed fall. The patient reports he tripped forward while stepping off of a stoop at work and landed directly o nto his back. He states this happened about two hours prior to his arrival at this facility. He denies loss of consciousness and did not strike his head. He characterizes the pain as sharp and notes in radiates down into his legs, bilaterally, with ambulation. He is able to ambulate and his gait is not altered. The patient rates his pain at a 9/10; amna to passing kidney stones which he has done in the past. He has not taken any medication for this pain or tried any supportive measures. He denies loss of motor or sensory function, incontinence of bowel/bladder, inability to void, or saddle paraesthesia. Bilateral Lower Back Pain Score (Numeric/FACES): 10 - Related Data Allergies Allergy/AdvReac Type Severity Reaction Status Date / Time No Known Allergies Allergy Verified 09/28/20 10:54 Home Meds: Home Meds Fenofibrate Nanocrystallized [Fenofibrate] 160 mg PO DAILY 04/29/15 [History] Simvastatin [Zocor] 10 mg PO BEDTIME 01/30/17 [History] Budesonide [Pulmicort] 1 applic INH QID PRN 05/31/18 [History] Meloxicam 7.5 mg PO DAILY 05/31/18 [History] atenoloL [Atenolol] 50 mg PO DAILY 05/31/18 [History] Divalproex Sodium [Divalproex Sodium ER] 250 mg PO DAILY 05/30/19 [History] Past Medical History HEENT History: Reports: Impaired Vision, Other (See Below) Other HEENT History: NEEDS CORRECTIVE LENSES; DOES NOT WEAR PRESENTLY Cardiovascular History: Reports: High Cholesterol, Hypertension Respiratory History: Reports: Asthma, Bronchitis, Recurrent, Pneumothorax, Other (See Below) Other Respiratory History: Collapse lower lung field, left due to punctured wound secondary to [facility]; CHEST TUBE PLACEMENT/REMOVED; BORN WITH "SEVERE LUNG INFECTION" Gastrointestinal History: Reports: GERD Genitourinary History: Reports: None Musculoskeletal History: Reports: Back Pain, Chronic, Other (See Below) Other Musculoskeletal History: DDD DEGENERATIVE DISC DISEASE; CARPAL TUNNEL SYNDROME LEFT; TIETZE'S DISEASE(costochondritis) Neurological History: Reports: Concussion, Head Trauma, Migraines Psychiatric History: Reports: Bipolar, Depression Endocrine/Metabolic History: Reports: None Hematologic History: Reports: None Immunologic History: Reports: None Oncologic (Cancer) History: Reports: None Dermatologic History: Reports: None - Infectious Disease History Infectious Disease History: Reports: Chicken Pox - Past Surgical History Head Surgeries/Procedures: Reports: None HEENT Surgical History: Reports: Naso-Sinus Surgery, Tonsillectomy Other HEENT Surgeries/Procedures: PARTIAL - UPPER Cardiovascular Surgical History: Reports: None Respiratory Surgical History: Reports: None GI Surgical History: Reports: None Male Surgical History: Reports: Renal Calculus Endocrine Surgical History: Reports: None Neurological Surgical History: Reports: None Musculoskeletal Surgical History: Reports: None Oncologic Surgical History: Reports: None Dermatological Surgical History: Reports: None Social & Family History - Family History Family Medical History: No Pertinent Family History - Tobacco Use Tobacco Use Status *Q: Current Every Day Tobacco User Years of Tobacco use: 35 Packs/Tins Daily: 0.2 - Caffeine Use Caffeine Use: Reports: Soda Caffeine Use Comment: occassional - Recreational Drug Use Recreational Drug Use: No - Living Situation & Occupation Living situation: Reports: , with Family Occupation: Employed ED ROS GENERAL - Review of Systems Review Of Systems: Comprehensive ROS is negative, except as noted in HPI. ED EXAM, UPPER BACK/NECK PAIN - Physical Exam Exam: See Below Exam Limited By: No Limitations General Appearance: Alert, No Apparent Distress, Other (Patient sitting upright on side of bed; Calm and pleasant with easy speech) Eye Exam: Bilateral Eye: EOMI, Normal Inspection, PERRL (3mm) Ears Exam: Normal External Exam, Normal Canal, Hearing Grossly Normal Nose Exam: Normal Inspection, Normal Mucousa, No Blood Throat/Mouth Exam: Normal Inspection, Normal Oropharynx, Normal Voice, No Airway Compromise Head Exam: Atraumatic, Normocephalic Neck Exam: Non-Tender, Full Range of Motion, Normal Alignment, Normal Inspection Nexus Criteria: No: Posterior, Midline Cervical Tenderness, Evidence of Intoxication, Altered Level of Consciousness, Focal Neurological Deficit, Painful Distraction Injuries Cardiovascular/Respiratory: Regular Rate, Rhythm, Normal Peripheral Pulses, Normal Breath Sounds, No Respiratory Distress GI/Abdominal: Normal Bowel Sounds, Soft, Non-Tender, No Distention, No Abnormal Bruit, No Mass, Pelvis Stable Back Exam: Paraspinal Tenderness (To mid, lateral back), Vertebral Tenderness (T o mid and lower spine). No: CVA Tenderness (L), CVA Tenderness (R), Decreased Range of Motion, Muscle Spasm Extremities: Normal Range of Motion, No Pedal Edema, Normal Capillary Refill, Leg Pain (Bilateral upper posterior legs with ambulation). 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 No: Motor Weakness, Sensory Deficit Psychiatric: Normal Affect, Normal Mood Skin Exam: Normal Color, Warm/Dry Course - Vital Signs Last Recorded V/S: Last Vital Signs Temp 96.6 F L 09/28/20 10:54 Pulse 110 H 09/28/20 10:54 Resp 14 09/28/20 10:54 BP 141/85 H 09/28/20 10:54 Pulse Ox 98 09/28/20 10:54 - Orders/Labs/Meds Meds: Medications Discontinued Medications Generic Name Dose Route Start Last Admin Trade Name Freq PRN Reason Stop Dose Admin Methylprednisolone Sodium Succinate 60 mg 09/28/20 11:42 09/28/20 11:51 Methylprednisolone Sodium Succinate 40 Mg/1 Ml Sdv IM 09/28/20 11:43 60 mg ONETIME ONE Administration Pantoprazole Sodium 40 mg 09/28/20 11:44 09/28/20 11:50 Pantoprazole 40 Mg Tab.Cr PO 09/28/20 11:45 40 mg ONETIME ONE Administration Tramadol HCl 50 mg 09/28/20 11:41 09/28/20 11:50 Tramadol 50 Mg Tab PO 09/28/20 11:42 50 mg ONETIME ONE Administration - Re-Assessments/Exams Free Text/Narrative Re-Assessment/Exam: 09/28/20 Patient currently on Meloxicam daily, will avoid NSAIDs. Solu-Medrol 60mg IM, Pantoprazole 40mg PO, and Ultram 50mg PO administered. Xray thoracolumbar obtained. Patient verbalized improvement in symptoms following medication administration. Findings of examination reviewed with patient. Will treat acute back pain with prednisone along with previously prescribed medication, and omeprazole for prophylaxis. Discussed supportive cares for acute back pain with patient. Patient instructed to follow up with primary care provider regarding today's visit. Red flag signs and symptoms which would warrant reevaluation reviewed. Patient verbalized understanding and agreement with the plan of care. Departure - Departure Time of Disposition: 12:49 Disposition: Home, Self-Care 01 Condition: Good Clinical Impression: Mid back pain, Disc degeneration, lumbar Fall down steps Qualifiers: Encounter type: initial encounter Qualified Code(s): W10.8XXA - Fall (on) (from) other stairs and steps, initial encounter - Discharge Information *PRESCRIPTION DRUG MONITORING PROGRAM REVIEWED*: Not Applicable *COPY OF PRESCRIPTION DRUG MONITORING REPORT IN PATIENT SHANIKA: Not Applicable Forms: ED Department Discharge Additional Instructions: Rx: Prednisone Rx: Omeprazole 1.) You may also take acetaminophen (Tylenol) 1000mg every six hours, as pain persists. 2.) You may apply ice to the affected area, should pain persist. 3.) Follow up with primary care provider should symptoms not improve, or worsen with medication. Sepsis Event Note (ED) - Evaluation Sepsis Screening Result: No Definite Risk
--- NOTE | 2020-09-28 12:45 | CR ---
EXAMINATION: Thoracolumbar 2V SEX: Male AGE: 44 years CLINICAL HISTORY: A 44-year-old male injured fall from step, onto back. INTERPRETATION: 1. Subtle levorotoscoliosis and signs of chronic severe lower lumbar (L5-S1) disc degeneration. 2. Hypertrophic marginal spondylosis upper lumbar and L5 vertebral bodies. 3. No sign of acute fracture or dislocation (spondylolisthesis) lower 4 thoracic vertebra or lumbar spine. 4. No pathologic skeletal lesion. 5. Symmetric spacing normal-appearing SI joints. 6. Lung bases clear. Conclusion: Chronic L5-S1 disc disease. No fracture or dislocation lower thoracic or lumbar spine.
== END 2020-09-28 13:03 | disposition home or self-care (01) ==
LOC: DL.ED 10:31
DX: M51.36 Other intervertebral disc degeneration, lumbar region (principal); E78.00 Pure hypercholesterolemia, unspecified; I10 Essential (primary) hypertension; Z72.0 Tobacco use; Z79.899 Other long term (current) drug therapy; W10.9XXA Fall (on) (from) unspecified stairs and steps, initial encounter
CPT/HCPCS: 72080; 96372; 99283; A9270; J2920

== ENCOUNTER 2020-11-29 11:27 | Emergency (ER) | payer MEDICAID | END 2020-11-29 11:53 | disposition home or self-care (01) | LOC: DL.ED 11:27 | DX: Z53.21 Procedure and treatment not carried out due to patient leaving prior to being seen by health care provider (principal) ==

== ENCOUNTER 2020-12-23 05:25 | Emergency (ER) | payer MEDICAID ==
[2020-12-23 06:11] VITALS: BP 134/98; PULSE 88
[2020-12-23] MEDS ORDERED: diphenhydrAMINE 50 MG Cap PO ONE (06:24)
--- NOTE | 2020-12-23 06:29 | EDM.PDOC ---
ED HPI GENERAL MEDICAL PROBLEM - General Chief Complaint: General Stated Complaint: SEVERE RLS, CANT SLEEP Time Seen by Provider: 12/23/20 06:15 Source of Information: Reports: Patient History Limitations: Reports: No Limitations - History of Present Illness INITIAL COMMENTS - FREE TEXT/NARRATIVE: Patient comes emergency department today at home with concerns of restless legs and unable to sleep. This patient has a history of bipolar disorder. For the past month he has had what he has been told as restless leg syndrome. He is unable to sleep at night. His legs are constantly moving and fidgeting. He has no cramping or tingling or odd paresthesias of his lower extremities. He has never had this before until about a month or so ago. He is on Depakote chronically and was recently switched to Vraylar. He has been seeing his primary care provider after the initiation of the Vraylar and for the concerns of the new development of his restless legs. He was on Mirapex which made no change in his symptoms of his legs constantly moving and his inability to sleep. He has no racing thoughts. He has no worries or anxieties. He has no hallucinations or delusions. He feels that his mood is appropriate. He has not tried anything to help with his constantly moving legs. He has not tried any thing to help him sleep. He has been referred to neurology for his constant leg movement. - Related Data Allergies Allergy/AdvReac Type Severity Reaction Status Date / Time No Known Allergies Allergy Verified 09/28/20 10:54 Home Meds: Home Meds Fenofibrate Nanocrystallized [Fenofibrate] 160 mg PO DAILY 04/29/15 [History] Simvastatin [Zocor] 10 mg PO BEDTIME 01/30/17 [History] Budesonide [Pulmicort] 1 applic INH QID PRN 05/31/18 [History] Meloxicam 7.5 mg PO DAILY 05/31/18 [History] atenoloL [Atenolol] 50 mg PO DAILY 05/31/18 [History] Divalproex Sodium [Divalproex Sodium ER] 250 mg PO DAILY 05/30/19 [History] Past Medical History HEENT History: Reports: Impaired Vision, Other (See Below) Other HEENT History: NEEDS CORRECTIVE LENSES; DOES NOT WEAR PRESENTLY Cardiovascular History: Reports: High Cholesterol, Hypertension Respiratory History: Reports: Asthma, Bronchitis, Recurrent, Pneumothorax, Other (See Below) Other Respiratory History: Collapse lower lung field, left due to punctured wound secondary to [facility]; CHEST TUBE PLACEMENT/REMOVED; BORN WITH "SEVERE LUNG INFECTION" Gastrointestinal History: Reports: GERD Genitourinary History: Reports: None Musculoskeletal History: Reports: Back Pain, Chronic, Other (See Below) Other Musculoskeletal History: DDD DEGENERATIVE DISC DISEASE; CARPAL TUNNEL SYNDROME LEFT; TIETZE'S DISEASE(costochondritis) Neurological History: Reports: Concussion, Head Trauma, Migraines, Other (See Below) Other Neuro History: Restless Leg Syndrome Psychiatric History: Reports: Bipolar, Depression Endocrine/Metabolic History: Reports: None Hematologic History: Reports: None Immunologic History: Reports: None Oncologic (Cancer) History: Reports: None Dermatologic History: Reports: None - Infectious Disease History Infectious Disease History: Reports: Chicken Pox - Past Surgical History Head Surgeries/Procedures: Reports: None HEENT Surgical History: Reports: Naso-Sinus Surgery, Tonsillectomy Other HEENT Surgeries/Procedures: PARTIAL - UPPER Cardiovascular Surgical History: Reports: None Respiratory Surgical History: Reports: None GI Surgical History: Reports: None Male Surgical History: Reports: Renal Calculus Endocrine Surgical History: Reports: None Neurological Surgical History: Reports: None Musculoskeletal Surgical History: Reports: None Oncologic Surgical History: Reports: None Dermatological Surgical History: Reports: None Social & Family History - Family History Family Medical History: No Pertinent Family History - Tobacco Use Tobacco Use Status *Q: Current Every Day Tobacco User Years of Tobacco use: 34 Packs/Tins Daily: 1 - Caffeine Use Caffeine Use: Reports: Coffee Caffeine Use Comment: occassional - Recreational Drug Use Recreational Drug Use: No - Living Situation & Occupation Living situation: Reports: , with Family Occupation: Employed ED ROS GENERAL - Review of Systems Review Of Systems: Comprehensive ROS is negative, except as noted in HPI. ED EXAM, GENERAL - Physical Exam Exam: See Below Exam Limited By: No Limitations General Appearance: Alert, WD/WN, No Apparent Distress, Anxious Eye Exam: Bilateral Eye: EOMI Respiratory/Chest: No Respiratory Distress, Lungs Clear Cardiovascular: Normal Peripheral Pulses, Regular Rate, Rhythm Peripheral Pulses: 2+: Posterior Tibial (L), Posterior Tibial (R), Dorsalis Pedis (L), Dorsalis Pedis (R) Back Exam: Normal Inspection Extremities: Normal Inspection (Normal inspection. His lower extremities are constantly swinging and twitching back and forth. When he gets up to walk this resolves. ) Neurological: Alert, Oriented, Other (Normal DTRs in the lower extremities. This is really not a tremor. He has no other tics or tremors. He is just constantly fidgeting and kicking his legs back and forth. This is very rhythmic in nature. He has no buccal lingual abnormal movements. ) Psychiatric: Normal Affect, Normal Mood Skin Exam: Warm, Dry, Intact, Normal Color, No Rash Course - Vital Signs Last Recorded V/S: Last Vital Signs Temp 96.2 F L 12/23/20 05:36 Pulse 88 12/23/20 05:36 Resp 16 12/23/20 05:36 BP 134/98 H 12/23/20 05:36 Pulse Ox 99 12/23/20 05:36 - Orders/Labs/Meds Labs: Laboratory Tests 12/23/20 12/23/20 Range/Units 06:38 06:38 WBC 9.2 (5.0-10.0) 10^3/uL RBC 5.06 (4.6-6.2) 10^6/uL Hgb 16.4 (14.0-18.0) g/dL Hct 46.4 (40.0-54.0) % MCV 91.7 D (80-100) fL MCH 32.4 (27.0-34.0) pg MCHC 35.3 H (33.0-35.0) g/dL Plt Count 290 (150-450) 10^3/uL Neut % (Auto) 53.4 (42.2-75.2) % Lymph % (Auto) 32.7 (20.5-50.1) % [place] % (Auto) 9.6 H (2-8) % Eos % (Auto) 4.0 H (1.0-3.0) % Baso % (Auto) 0.3 (0.0-1.0) % Iron 87 (65-175) ug/dL TIBC 366 (250-450) ug/dL % Saturation 23.8 (20.0-50.0) % Ferritin 84 (26-388) mg/mL Meds: Medications Discontinued Medications Generic Name Dose Route Start Last Admin Trade Name Freq PRN Reason Stop Dose Admin Diphenhydramine HCl 50 mg 12/23/20 06:24 12/23/20 06:33 Diphenhydramine 50 Mg Cap PO 12/23/20 06:25 50 mg ONETIME ONE Administration - Re-Assessments/Exams Free Text/Narrative Re-Assessment/Exam: With the recent administration and initiation of the second-generation antipsychotic Vraylar this is most likely a extraparametal side effect caused from the initiation of the Vraylar. The patient was given 50 mg of Benadryl with complete resolution of his lower extremity movements. CBC was unremarkable as well as iron studies to be concerning for other pathology of his lower extremity movements. The patient's history presentation is not consistent with the underlying disease and diagnosis of restless legs as typically this is a sensation that with movement gets better and this does not with this patient. This patient is clearly showing extraparametal side effects I do not see any presence of overt tar dive dyskinesia at this time. He is much improved following the Benadryl. I would like him to contact his primary care provider and discuss this very case of extraparametal side effects which is very prevalent with this type of medication. And determine the long-term management. He is very happy with this plan and his questions are answered. Departure - Departure Time of Disposition: 07:05 Disposition: Home, Self-Care 01 Clinical Impression: Medication side effect - Discharge Information Instructions: Restless Legs Syndrome Forms: ED Department Discharge Additional Instructions: I really wonder if your leg symptoms are more a medication side effect. Contact your PCP today by phone with this concern. Try OTC benadryl for the side effects and consider discontinuing the Vraylar as this is a common side effect from this medication. Return to the ED if new or worsening symptoms. Follow up as above with PCP. Sepsis Event Note (ED) - Evaluation Sepsis Screening Result: No Definite Risk
== END 2020-12-23 07:51 | disposition home or self-care (01) ==
LOC: DL.ED 05:25
DX: G47.00 Insomnia, unspecified (principal); T42.6X5A Adverse effect of other antiepileptic and sedative-hypnotic drugs, initial encounter; E78.00 Pure hypercholesterolemia, unspecified; I10 Essential (primary) hypertension; Z72.0 Tobacco use; Z79.899 Other long term (current) drug therapy
CPT/HCPCS: 36415; 82728; 83540; 83550; 85025; 99284; Q0163

== ENCOUNTER 2021-05-22 19:24 | Emergency (ER) | payer BC, MEDICAID ==
[2021-05-22 19:16] VITALS: BP 162/114; PULSE 94
[2021-05-22] MEDS ORDERED: methylPREDNISolone Sodium Succinate 125 MG/2 ML SDV IM ONE (21:20)
== END 2021-05-22 21:44 | disposition home or self-care (01) ==
LOC: DL.ED 19:24
DX: M54.2 Cervicalgia (principal); E78.00 Pure hypercholesterolemia, unspecified; I10 Essential (primary) hypertension; K21.9 Gastro-esophageal reflux disease without esophagitis; Z72.0 Tobacco use
CPT/HCPCS: 72125; 96372; 99284-25; J2930

== ENCOUNTER 2022-01-10 20:54 | Emergency (ER) | payer MEDICAID ==
[2022-01-10] MEDS ORDERED: GI Cocktail Oral Solution 30 ML PO ONE (23:26)
[2022-02-06 09:55] LABS: ANION GAP 12.8 mEq/L (7-13); CHLORIDE,CL 106 mmol/L (98-107); ESTIMATED GFR 74 mL/min (>=60); SODIUM,NA 141 mmol/L (136-145)
[2022-02-06 09:59] LABS: AMPHETAMINES,URINE NEGATIVE (NEGATIVE); BARBITURATES,URINE NEGATIVE (NEGATIVE); BENZODIAZEPINE,URINE NEGATIVE (NEGATIVE); MDMA (ECSTASY), URINE NEGATIVE (NEGATIVE); METHADONE,URINE NEGATIVE (NEGATIVE); METHAMPHETAMINES,URINE NEGATIVE (NEGATIVE); OPIATES,URINE NEGATIVE (NEGATIVE); OXYCODONE,URINE NEGATIVE (NEGATIVE); PHENCYCLIDINE,URINE NEGATIVE (NEGATIVE); TCA,URINE NEGATIVE (NEGATIVE)
== END 2022-01-11 00:05 | disposition home or self-care (01) ==
LOC: DL.ED 20:54
DX: K21.9 Gastro-esophageal reflux disease without esophagitis (principal); I10 Essential (primary) hypertension
CPT/HCPCS: 36415; 71045; 80053; 80305; 80307; 81003; 82150; 83605; 83690; 84484; 85025; 86140; 87635; 99285; A9270; U0002

== ENCOUNTER 2022-05-19 17:59 | Emergency (ER) | payer MEDICAID ==
[2022-05-19] MEDS ORDERED: Sodium Chloride 0.9% 10 ML Syringe FLUSH PRN (18:33)
[2022-05-19 18:35] VITALS: BP 137/105; PULSE 119
[2022-05-19 19:07] LABS: ANION GAP 18.7 mEq/L (7-13); CHLORIDE,CL 102 mmol/L (98-107); SODIUM,NA 139 mmol/L (136-145)
[2022-05-19 19:08] LABS: ESTIMATED GFR 76 mL/min (>=60)
[2022-05-19 19:50] LABS: CORONAVIRUS COVID-19 NAA NEGATIVE (NEGATIVE); RESPIRATORY SYNCYTIAL VIR NAA NEGATIVE (NEGATIVE)
== END 2022-05-19 20:02 | disposition home or self-care (01) ==
LOC: DL.ED 17:59
DX: R10.33 Periumbilical pain (principal); K21.9 Gastro-esophageal reflux disease without esophagitis; E78.00 Pure hypercholesterolemia, unspecified; F17.210 Nicotine dependence, cigarettes, uncomplicated; Z79.899 Other long term (current) drug therapy; Z20.822 Contact with and (suspected) exposure to COVID-19
CPT/HCPCS: 0241U; 36415; 80053; 81001; 82150; 83605; 83690; 83735; 85025; 86140; 99283; 99284; J3490

== ENCOUNTER 2022-11-09 22:39 | Emergency (ER) | payer MEDICAID ==
[2022-11-09] MEDS ORDERED: Naloxone 2 MG/2 ML Syringe IVPUSH PRN (22:57)
[2022-11-09] MEDS ORDERED: Ketorolac 30 MG/ML SDV IVPUSH ONE (22:57)
[2022-11-09] MEDS ORDERED: Sodium Chloride 0.9% 10 ML Syringe FLUSH PRN (22:57)
[2022-11-09] MEDS ORDERED: Morphine 2 MG/ML SYRINGE IVPUSH ONE (22:57)
[2022-11-09 23:13] LABS: BASOPHILS PERCENT AUTO 0.3 % (0.0-1.0); EOSINOPHILS PERCENT AUTO 2.8 % (1.0-3.0); HEMATOCRIT 43.7 % (40.0-54.0); HEMOGLOBIN 15.1 g/dL (14.0-18.0); LYMPHOCYTES PERCENT AUTO 24.9 % (20.5-50.1); MEAN CORPUSCULAR HEMOGLOBIN 31.7 pg (27.0-34.0); MEAN CORPUSCULAR HGB CONC 34.6 g/dL (33.0-35.0); MEAN CORPUSCULAR VOLUME 91.8 fL (80-100); MONOCYTES PERCENT AUTO 8.6 % (2-8); NEUTROPHILS PERCENT AUTO 63.4 % (42.2-75.2); PLATELET COUNT,PLT 286 10^3/uL (150-450); RED BLOOD CELL COUNT 4.76 10^6/uL (4.6-6.2); WHITE BLOOD CELL COUNT,WBC 12.6 10^3/uL (5.0-10.0)
[2022-11-09] MEDS ORDERED: Iopamidol 612 MG/ML 100 ML Bottle IVPUSH ONE (23:30)
[2022-11-09] MEDS ORDERED: cefTRIAXone 1 GM Vial IVPUSH ONE (23:31)
[2022-11-09 23:32] LABS: A/G RATIO 1.2; ALBUMIN 4.2 g/dL (3.4-5.0); ANION GAP 15.1 mEq/L (7-13); BILIRUBIN TOTAL 0.3 mg/dL (0.2-1.0); BUN/CREATININE RATIO 15.7 (No establ ref range); CALCIUM 8.9 mg/dL (8.5-10.1); CREATININE 1.34 mg/dL (0.70-1.30); EST CRCL DRUG DOSING (CG) 72.58 mL/min; POTASSIUM,K 4.1 mmol/L (3.5-5.1); PROTEIN TOTAL,TP 7.7 g/dL (6.4-8.2)
[2022-11-09 23:44] VITALS: BP 119/81; PULSE 83
== END 2022-11-10 01:55 | disposition home or self-care (01) ==
LOC: DL.ED 22:39
DX: K02.9 Dental caries, unspecified (principal); K06.9 Disorder of gingiva and edentulous alveolar ridge, unspecified; E78.00 Pure hypercholesterolemia, unspecified; I10 Essential (primary) hypertension; K21.9 Gastro-esophageal reflux disease without esophagitis; Z79.899 Other long term (current) drug therapy
CPT/HCPCS: 36415; 70491; 80053; 85025; 96374; 96375; 99283; 99284-25; J0696; J1885; J2270; J3490; Q9967

== ENCOUNTER 2022-12-22 23:41 | Emergency (ER) | payer MEDICAID ==
[2022-12-23] MEDS ORDERED: fentaNYL 100 MCG/2 ML SDV IVPUSH ONE (00:19)
[2022-12-23] MEDS ORDERED: LORazepam 2 MG/ML SDV IVPUSH ONE (00:20)
[2022-12-23] MEDS ORDERED: Sodium Chloride 0.9% 10 ML Syringe FLUSH PRN (00:20)
[2022-12-23] MEDS ORDERED: Orphenadrine 60 MG/2 ML Inj IM ONE (00:21)
[2022-12-23 00:26] VITALS: BP 103/91; PULSE 96
== END 2022-12-23 02:00 | disposition home or self-care (01) ==
LOC: DL.ED 23:41
DX: G89.18 Other acute postprocedural pain (principal); M54.50 Low back pain, unspecified; E78.00 Pure hypercholesterolemia, unspecified; J45.909 Unspecified asthma, uncomplicated; K21.9 Gastro-esophageal reflux disease without esophagitis; I10 Essential (primary) hypertension; F17.210 Nicotine dependence, cigarettes, uncomplicated; Z79.899 Other long term (current) drug therapy
CPT/HCPCS: 96372; 96374; 96375; 99283; 99283-25; J2060; J2360; J3010; J3490

== ENCOUNTER 2023-06-27 18:51 | Emergency (ER) | payer MEDICAID ==
[2023-06-27 19:45] VITALS: BP 128/83; PULSE 80
[2023-06-27] MEDS ORDERED: Sodium Chloride 0.9% 10 ML Syringe FLUSH PRN (19:46)
[2023-06-27] MEDS: Morphine 2 MG/ML SYRINGE IVPUSH ONE (20:00)
[2023-06-27 20:08] LABS: APPEARANCE,URINE CLEAR (CLEAR); BILIRUBIN,URINE NEGATIVE (NEGATIVE); COLOR,URINE YELLOW (YELLOW); GLUCOSE,URINE NEGATIVE (NEGATIVE); KETONES,URINE NEGATIVE (NEGATIVE); LEUKOCYTE ESTERASE,URINE NEGATIVE (NEGATIVE); NITRITE,URINE NEGATIVE (NEGATIVE); OCCULT BLOOD,URINE TRACE-INTACT (NEGATIVE); PROTEIN,URINE NEGATIVE (NEGATIVE); UROBILINOGEN,URINE 0.2 mg/dL (0.2-1.0)
[2023-06-27 20:09] LABS: HEMATOCRIT 45.2 % (40.0-54.0); HEMOGLOBIN 15.5 g/dL (14.0-18.0); MEAN CORPUSCULAR HEMOGLOBIN 31.4 pg (27.0-34.0); MEAN CORPUSCULAR HGB CONC 34.3 g/dL (33.0-35.0); MEAN CORPUSCULAR VOLUME 91.7 fL (80-100); PLATELET COUNT,PLT 298 10^3/uL (150-450); RED BLOOD CELL COUNT 4.93 10^6/uL (4.6-6.2); WHITE BLOOD CELL COUNT,WBC 11.4 10^3/uL (5.0-10.0)
[2023-06-27 20:15] LABS: BASOPHILS PERCENT AUTO 0.4 % (0.0-1.0); EOSINOPHILS PERCENT AUTO 2.5 % (1.0-3.0); LYMPHOCYTES PERCENT AUTO 23.8 % (20.5-50.1); MONOCYTES PERCENT AUTO 11.2 % (2-8); NEUTROPHILS PERCENT AUTO 62.1 % (42.2-75.2)
[2023-06-27 20:22] LABS: BACTERIA,URINE OCCASIONAL /HPF (0-FEW/HPF); EPITHELIAL CELLS,URINE RARE /HPF (NOT SEEN); MUCUS,URINE RARE /LPF (NOT SEEN); RBC,URINE 0-5 /HPF (0-5); WBC,URINE 0-5 /HPF (0-5/HPF)
[2023-06-27 20:25] LABS: A/G RATIO 1.2; ALBUMIN 4.2 g/dL (3.4-5.0); ANION GAP 18.3 mEq/L (7-13); BILIRUBIN TOTAL 0.2 mg/dL (0.2-1.0); BUN/CREATININE RATIO 8.2 (No establ ref range); CALCIUM 8.6 mg/dL (8.5-10.1); CREATININE 1.34 mg/dL (0.70-1.30); EST CRCL DRUG DOSING (CG) 71.8 mL/min; POTASSIUM,K 4.3 mmol/L (3.5-5.1); PROTEIN TOTAL,TP 7.6 g/dL (6.4-8.2)
[2023-06-27] MEDS: Iopamidol 612 MG/ML 100 ML Bottle IVPUSH ONE (20:26)
[2023-06-27 20:45] LABS: EOSINOPHILS PERCENT MAN 1 % (1-3); LYMPHOCYTES PERCENT MAN 30 % (20-50); MONOCYTES PERCENT MAN 9 % (2-8); SEG NEUTROPHILS PERCENT MAN 60 % (42-75)
== END 2023-06-27 21:44 | disposition home or self-care (01) ==
LOC: DL.ED 18:51
DX: R10.31 Right lower quadrant pain (principal); I10 Essential (primary) hypertension; J45.909 Unspecified asthma, uncomplicated; K21.9 Gastro-esophageal reflux disease without esophagitis; E78.00 Pure hypercholesterolemia, unspecified; E66.9 Obesity, unspecified; Z79.899 Other long term (current) drug therapy; Z68.30 Body mass index [BMI] 30.0-30.9, adult
CPT/HCPCS: 36415; 74177; 80053; 81001; 83690; 85025; 96374; 99283; 99284; J2270; Q9967

== ENCOUNTER 2023-06-28 13:21 | Inpatient (IN) | payer MEDICAID ==
[2023-06-28 13:26] LABS: HEMATOCRIT 47.1 % (40.0-54.0); HEMOGLOBIN 16.2 g/dL (14.0-18.0); MEAN CORPUSCULAR HEMOGLOBIN 31.6 pg (27.0-34.0); MEAN CORPUSCULAR HGB CONC 34.4 g/dL (33.0-35.0); MEAN CORPUSCULAR VOLUME 91.8 fL (80-100); PLATELET COUNT,PLT 305 10^3/uL (150-450); RED BLOOD CELL COUNT 5.13 10^6/uL (4.6-6.2); WHITE BLOOD CELL COUNT,WBC 14.8 10^3/uL (5.0-10.0)
[2023-06-28] MEDS: HYDROmorphone 0.5 MG/0.5 ML Syringe IVPUSH ONE (13:26)
[2023-06-28] MEDS: Sodium Chloride 0.9% 1,000 ML IV ONE (13:26)
[2023-06-28] MEDS: Sodium Chloride 0.9% 10 ML Syringe FLUSH PRN (13:26)
[2023-06-28] MEDS: Iopamidol 612 MG/ML 100 ML Bottle IVPUSH ONE (13:40)
[2023-06-28 13:41] LABS: BASOPHILS PERCENT AUTO 0.1 % (0.0-1.0); EOSINOPHILS PERCENT AUTO 0.2 % (1.0-3.0); MONOCYTES PERCENT AUTO 7.5 % (2-8); NEUTROPHILS PERCENT AUTO 81.2 % (42.2-75.2)
[2023-06-28 13:48] LABS: BAND PERCENT MAN 3 %; LYMPHOCYTES PERCENT MAN 10 % (20-50); SEG NEUTROPHILS PERCENT MAN 80 % (42-75)
[2023-06-28 13:49] LABS: A/G RATIO 1.2; ALBUMIN 4.2 g/dL (3.4-5.0); ANION GAP 19.9 mEq/L (7-13); BILIRUBIN TOTAL 0.4 mg/dL (0.2-1.0); CALCIUM 8.9 mg/dL (8.5-10.1); CREATININE 1.45 mg/dL (0.70-1.30); EST CRCL DRUG DOSING (CG) 68.38 mL/min; MONOCYTES PERCENT MAN 8 % (2-8); POTASSIUM,K 3.9 mmol/L (3.5-5.1); PROTEIN TOTAL,TP 7.8 g/dL (6.4-8.2)
[2023-06-28] MEDS: Lidocaine 2% Jelly 10 ML Urojet MUCMEM ONE (14:46)
[2023-06-28] MEDS: Benzocaine 20% Topical Spray UD MUCMEM ONE (15:00)
[2023-06-28] MEDS ORDERED: hydrALAZINE 20 MG/ML SDV IVPUSH PRN (16:44)
[2023-06-28] MEDS ORDERED: Metoprolol Tartrate 5 MG/5 ML SDV IVPUSH PRN (16:44)
[2023-06-28] MEDS ORDERED: Ketorolac 30 MG/ML SDV IVPUSH PRN (16:45)
[2023-06-28] MEDS ORDERED: Acetaminophen/oxyCODONE 325-5 MG Tab PO PRN (16:45)
[2023-06-28] MEDS ORDERED: Acetaminophen 325 MG Tab PO PRN (16:45)
[2023-06-28] MEDS ORDERED: Naloxone 2 MG/2 ML Syringe IVPUSH PRN (16:45)
[2023-06-28] MEDS ORDERED: Albuterol/Ipratropium 3.0-0.5 MG/3 ML Neb Soln NEB PRN (16:45)
[2023-06-28] MEDS: Metoclopramide 10 MG/2 ML SDV IVPUSH ONE (18:11)
[2023-06-28] MEDS: Nicotine 21 MG/24 Hr Patch TRDERM ONE (18:13)
[2023-06-28] MEDS: Sodium Chloride 0.9% 500 ML IV SCH (18:17)
[2023-06-28] MEDS: Dextrose 5%-0.9% NaCl 1,000 ML IV SCH (19:33)
[2023-06-28] MEDS: HYDROmorphone 0.5 MG/0.5 ML Syringe IVPUSH PRN (19:59)
[2023-06-29] MEDS: Metoclopramide 10 MG/2 ML SDV IVPUSH SCH (00:18)
[2023-06-29 05:26] VITALS: BP 147/90; PULSE 79
[2023-06-29 06:43] LABS: A/G RATIO 1.1; ALBUMIN 3.5 g/dL (3.4-5.0); ANION GAP 17.6 mEq/L (7-13); BILIRUBIN TOTAL 0.4 mg/dL (0.2-1.0); BUN/CREATININE RATIO 13.4 (No establ ref range); CREATININE 1.34 mg/dL (0.70-1.30); EST CRCL DRUG DOSING (CG) 72.9 mL/min; MAGNESIUM 1.6 mg/dL (1.8-2.4); POTASSIUM,K 3.6 mmol/L (3.5-5.1); PROTEIN TOTAL,TP 6.6 g/dL (6.4-8.2)
[2023-06-29 06:55] LABS: BASOPHILS PERCENT AUTO 0.1 % (0.0-1.0); EOSINOPHILS PERCENT AUTO 0.7 % (1.0-3.0); HEMOGLOBIN 14.8 g/dL (14.0-18.0); LYMPHOCYTES PERCENT AUTO 17.1 % (20.5-50.1); MEAN CORPUSCULAR HEMOGLOBIN 31.5 pg (27.0-34.0); MEAN CORPUSCULAR HGB CONC 33.6 g/dL (33.0-35.0); MEAN CORPUSCULAR VOLUME 93.6 fL (80-100); MONOCYTES PERCENT AUTO 19.3 % (2-8); NEUTROPHILS PERCENT AUTO 62.8 % (42.2-75.2); PLATELET COUNT,PLT 256 10^3/uL (150-450); WHITE BLOOD CELL COUNT,WBC 6.8 10^3/uL (5.0-10.0)
[2023-06-29] MEDS ORDERED: Nicotine 21 MG/24 Hr Patch TRDERM SCH (09:00)
== END 2023-06-29 06:35 | disposition left against medical advice (07) | DRG 389 ==
LOC: DL.ED 13:21 → DL.MS 14:50
PROVIDERS: ADMIT Internal Medicine; ATTEND Internal Medicine
DX: K56.600 Partial intestinal obstruction, unspecified as to cause (principal); E87.20 Acidosis, unspecified; N17.9 Acute kidney failure, unspecified; K76.0 Fatty (change of) liver, not elsewhere classified; K21.9 Gastro-esophageal reflux disease without esophagitis; R00.0 Tachycardia, unspecified; R73.9 Hyperglycemia, unspecified; I10 Essential (primary) hypertension; E78.00 Pure hypercholesterolemia, unspecified; G43.909 Migraine, unspecified, not intractable, without status migrainosus; E66.9 Obesity, unspecified; F31.9 Bipolar disorder, unspecified; J45.909 Unspecified asthma, uncomplicated; Z90.89 Acquired absence of other organs; Z98.890 Other specified postprocedural states; Z68.30 Body mass index [BMI] 30.0-30.9, adult; Z72.0 Tobacco use; Z87.442 Personal history of urinary calculi
CPT/HCPCS: 36415; 43752; 74018; 74177; 80053; 83605; 83690; 83735; 85025; 96361; 96374; 99223; 99238; 99284; 99285-25; A9270-GY; J1170; J2765; J3490; J7030; J7040; J7042; Q9967

== ENCOUNTER 2023-10-24 19:59 | Emergency (ER) | payer MEDICAID ==
[2023-10-24] MEDS: Bacitracin Oint 1 GM U/D Packet TOP ONE (20:25)
[2023-10-24 20:55] VITALS: PULSE 81
[2023-10-24 20:56] VITALS: BP 135/99
== END 2023-10-24 20:50 | disposition home or self-care (01) ==
LOC: DL.ED 19:59
DX: S61.204A Unspecified open wound of right ring finger without damage to nail, initial encounter (principal); I10 Essential (primary) hypertension; J45.909 Unspecified asthma, uncomplicated; K21.9 Gastro-esophageal reflux disease without esophagitis; Z91.048 Other nonmedicinal substance allergy status; Z79.899 Other long term (current) drug therapy; W26.8XXA Contact with other sharp object(s), not elsewhere classified, initial encounter
CPT/HCPCS: 99283; A9270

== ENCOUNTER 2023-11-07 09:57 | Emergency (ER) | payer MEDICAID ==
[2023-11-07] MEDS ORDERED: Fluorescein 1 MG Ophth Strip ONE (10:22)
[2023-11-07] MEDS ORDERED: Proparacaine 0.5% Ophth Soln 15 ML Bottle EYERT ONE (10:28)
[2023-11-07] MEDS ORDERED: Tetracaine HCl/PF 0.5% 4 ML Bottle ONE (10:28)
== END 2023-11-07 11:02 | disposition home or self-care (01) ==
LOC: DL.ED 09:57
DX: S05.31XA Ocular laceration without prolapse or loss of intraocular tissue, right eye, initial encounter (principal); I10 Essential (primary) hypertension; E78.00 Pure hypercholesterolemia, unspecified; K21.9 Gastro-esophageal reflux disease without esophagitis; F17.210 Nicotine dependence, cigarettes, uncomplicated; Z79.899 Other long term (current) drug therapy; Z91.09 Other allergy status, other than to drugs and biological substances; W55.03XA Scratched by cat, initial encounter
CPT/HCPCS: 99283; J3490

== ENCOUNTER 2024-01-22 18:54 | Emergency (ER) | payer MEDICARE, MEDICAID ==
[2024-01-22] MEDS: QUEtiapine 100 MG Tab PO ONE (20:28)
== END 2024-01-22 20:34 | disposition home or self-care (01) ==
LOC: DL.ED 18:54
DX: Z76.0 Encounter for issue of repeat prescription (principal); E78.00 Pure hypercholesterolemia, unspecified; I10 Essential (primary) hypertension; J45.909 Unspecified asthma, uncomplicated; K21.9 Gastro-esophageal reflux disease without esophagitis; F17.210 Nicotine dependence, cigarettes, uncomplicated; Z79.899 Other long term (current) drug therapy; Z91.048 Other nonmedicinal substance allergy status; Z91.09 Other allergy status, other than to drugs and biological substances
CPT/HCPCS: 99281; A9270

== ENCOUNTER 2024-05-29 16:55 | Emergency (ER) | payer MEDICAID, MEDICARE ==
[2024-05-29] MEDS ORDERED: Sodium Chloride 0.9% 10 ML Syringe FLUSH PRN (17:16)
[2024-05-29 17:37] LABS: BASOPHILS PERCENT AUTO 0.6 % (0.0-1.0); EOSINOPHILS PERCENT AUTO 3.4 % (1.0-3.0); HEMATOCRIT 37.7 % (40.0-54.0); MEAN CORPUSCULAR HGB CONC 31.8 g/dL (33.0-35.0); MEAN CORPUSCULAR VOLUME 84.9 fL (80-100); MONOCYTES PERCENT AUTO 13.7 % (2-8); NEUTROPHILS PERCENT AUTO 49.3 % (42.2-75.2); PLATELET COUNT,PLT 337 10^3/uL (150-450); RED BLOOD CELL COUNT 4.44 10^6/uL (4.6-6.2); WHITE BLOOD CELL COUNT,WBC 6.7 10^3/uL (5.0-10.0)
[2024-05-29 18:18] VITALS: PULSE 62
[2024-05-29 18:21] LABS: A/G RATIO 1.2; ALBUMIN 4.1 g/dL (3.4-5.0); ANION GAP 15.9 mEq/L (7-13); BILIRUBIN TOTAL 0.2 mg/dL (0.2-1.0); CALCIUM 9.2 mg/dL (8.5-10.1); CREATININE 1.33 mg/dL (0.70-1.30); EST CRCL DRUG DOSING (CG) 72.65 mL/min; FOLIC ACID 11.5 ng/mL (8.6-58.9); MAGNESIUM 1.9 mg/dL (1.8-2.4); POTASSIUM,K 3.9 mmol/L (3.5-5.1); PROTEIN TOTAL,TP 7.4 g/dL (6.4-8.2); T4 FREE 0.86 ng/dL (0.76-1.46); TSH ULTRASENSITIVE 3.07 uIU/mL (0.36-3.74)
[2024-05-29 18:43] VITALS: BP 134/94
== END 2024-05-29 18:34 | disposition home or self-care (01) ==
LOC: DL.ED 16:55
DX: E61.1 Iron deficiency (principal); I10 Essential (primary) hypertension; E78.00 Pure hypercholesterolemia, unspecified; Z91.048 Other nonmedicinal substance allergy status; Z91.09 Other allergy status, other than to drugs and biological substances; Z79.899 Other long term (current) drug therapy
CPT/HCPCS: 36415; 80053; 82607; 82746; 82947; 83540; 83735; 84439; 84443; 85025; 86308; 93005; 93010; 99284; 99285

== ENCOUNTER 2024-05-31 13:45 | Emergency (ER) | payer MEDICARE ==
[2024-05-31] MEDS ORDERED: Sodium Chloride 0.9% 10 ML Syringe FLUSH PRN ×2 (14:46)
[2024-05-31 15:23] LABS: HEMATOCRIT 37.7 % (40.0-54.0); HEMOGLOBIN 11.9 g/dL (14.0-18.0); MEAN CORPUSCULAR HGB CONC 31.6 g/dL (33.0-35.0); MEAN CORPUSCULAR VOLUME 85.5 fL (80-100); PLATELET COUNT,PLT 324 10^3/uL (150-450); RED BLOOD CELL COUNT 4.41 10^6/uL (4.6-6.2)
[2024-05-31 15:30] LABS: BASOPHILS PERCENT AUTO 0.5 % (0.0-1.0); EOSINOPHILS PERCENT AUTO 1.5 % (1.0-3.0); LYMPHOCYTES PERCENT AUTO 12.1 % (20.5-50.1); MONOCYTES PERCENT AUTO 11.8 % (2-8); NEUTROPHILS PERCENT AUTO 74.1 % (42.2-75.2)
[2024-05-31 15:58] LABS: A/G RATIO 1.2; ALANINE AMINOTRANSFERASE,ALT 43 U/L (16-63); ALKALINE PHOSPHATASE 48 U/L (46-116); ANION GAP 15.6 mEq/L (7-13); ASPARTATE AMNIOTRANSFERASE,AST 23 U/L (15-37); BILIRUBIN TOTAL 0.2 mg/dL (0.2-1.0); BLOOD UREA NITROGEN,BUN 8 mg/dL (7-18); BUN/CREATININE RATIO 6.1 (No establ ref range); CALCIUM 9.1 mg/dL (8.5-10.1); CARBON DIOXIDE,CO2 27 mmol/L (21-32); CHLORIDE,CL 103 mmol/L (98-107); CREATININE 1.32 mg/dL (0.70-1.30); GLUCOSE RANDOM 90 mg/dL (70-99); POTASSIUM,K 4.6 mmol/L (3.5-5.1); PROTEIN TOTAL,TP 7.4 g/dL (6.4-8.2); SODIUM,NA 141 mmol/L (136-145)
[2024-05-31 16:06] LABS: ESTIMATED GFR 66 mL/min (>=60)
[2024-05-31 16:07] LABS: PROTHROMBIN TIME 10.3 SEC (9.0-12.0)
[2024-05-31] MEDS: Iopamidol 755 Mg/ML 100 ML Bottle IVPUSH ONE (16:42)
[2024-05-31] MEDS: Iopamidol 612 MG/ML 100 ML Bottle IVPUSH ONE (16:43)
[2024-05-31 16:45] LABS: BAND PERCENT MAN 1 %; EOSINOPHILS PERCENT MAN 1 % (1-3); LYMPHOCYTES PERCENT MAN 6 % (20-50); MONOCYTES PERCENT MAN 10 % (2-8); SEG NEUTROPHILS PERCENT MAN 82 % (42-75)
[2024-05-31] MEDS: Sodium Chloride 0.9% 1,000 ML IV SCH (17:44)
[2024-05-31 17:48] VITALS: BP 112/66; PULSE 89
== END 2024-05-31 18:43 | disposition home or self-care (01) ==
LOC: DL.ED 13:45
DX: R42 Dizziness and giddiness (principal); R06.00 Dyspnea, unspecified; I10 Essential (primary) hypertension; K21.9 Gastro-esophageal reflux disease without esophagitis; J45.909 Unspecified asthma, uncomplicated; E78.00 Pure hypercholesterolemia, unspecified; F17.210 Nicotine dependence, cigarettes, uncomplicated; Z91.048 Other nonmedicinal substance allergy status; Z79.899 Other long term (current) drug therapy
CPT/HCPCS: 36415; 71275; 80053; 84484; 85025; 85379; 85610; 93005; 99285; J7030; Q9967; 93010; 99284

== ENCOUNTER 2024-07-21 21:45 | Emergency (ER) | payer MEDICARE, MEDICAID ==
[2024-07-21 22:12] VITALS: BP 141/92; PULSE 86
[2024-07-21] MEDS: Ibuprofen 800 MG Tab PO ONE (22:20)
[2024-07-21] MEDS: Acetaminophen 500 MG Tab PO ONE (22:20)
[2024-07-21] MEDS: Bacitracin Oint 1 GM U/D Packet TOP ONE (22:20)
== END 2024-07-21 22:21 | disposition home or self-care (01) ==
LOC: DL.ED 21:45
DX: T23.191A Burn of first degree of multiple sites of right wrist and hand, initial encounter (principal); E78.00 Pure hypercholesterolemia, unspecified; I10 Essential (primary) hypertension; J45.909 Unspecified asthma, uncomplicated; Z91.048 Other nonmedicinal substance allergy status; Z91.09 Other allergy status, other than to drugs and biological substances; Z79.899 Other long term (current) drug therapy; X12.XXXA Contact with other hot fluids, initial encounter
CPT/HCPCS: 99283; A9270-GY

== ENCOUNTER 2024-07-23 03:49 | Emergency (ER) | payer MEDICARE, MEDICAID ==
[2024-07-23 04:04] VITALS: BP 136/84; PULSE 88
== END 2024-07-23 04:21 | disposition home or self-care (01) ==
LOC: DL.ED 03:49
DX: S80.01XA Contusion of right knee, initial encounter (principal); I10 Essential (primary) hypertension; E78.00 Pure hypercholesterolemia, unspecified; K21.9 Gastro-esophageal reflux disease without esophagitis; Z91.048 Other nonmedicinal substance allergy status; Z91.09 Other allergy status, other than to drugs and biological substances; Z79.899 Other long term (current) drug therapy; W22.8XXA Striking against or struck by other objects, initial encounter; Y93.89 Activity, other specified
CPT/HCPCS: 99283

== ENCOUNTER 2024-07-28 17:51 | Emergency (ER) | payer MEDICARE, MEDICAID ==
[2024-07-28 19:58] VITALS: BP 136/78; PULSE 70
== END 2024-07-28 19:55 | disposition home or self-care (01) ==
LOC: DL.ED 17:51
DX: S80.01XA Contusion of right knee, initial encounter (principal); I10 Essential (primary) hypertension; E78.00 Pure hypercholesterolemia, unspecified; J45.909 Unspecified asthma, uncomplicated; K21.9 Gastro-esophageal reflux disease without esophagitis; Z91.048 Other nonmedicinal substance allergy status; Z91.09 Other allergy status, other than to drugs and biological substances; Z79.899 Other long term (current) drug therapy; Z79.51 Long term (current) use of inhaled steroids; W22.8XXA Striking against or struck by other objects, initial encounter
CPT/HCPCS: 73562-RT; 99283

== ENCOUNTER 2024-08-24 07:59 | Emergency (ER) | payer MEDICARE, MEDICAID ==
[2024-08-24] MEDS ORDERED: Sodium Chloride 0.9% 10 ML Syringe FLUSH PRN (08:20)
[2024-08-24 08:34] LABS: HEMATOCRIT 42.9 % (40.0-54.0); HEMOGLOBIN 13.7 g/dL (14.0-18.0); MEAN CORPUSCULAR HEMOGLOBIN 27.2 pg (27.0-34.0); MEAN CORPUSCULAR HGB CONC 31.9 g/dL (33.0-35.0); MEAN CORPUSCULAR VOLUME 85.3 fL (80-100); PLATELET COUNT,PLT 356 10^3/uL (150-450); RED BLOOD CELL COUNT 5.03 10^6/uL (4.6-6.2); WHITE BLOOD CELL COUNT,WBC 10.1 10^3/uL (5.0-10.0)
[2024-08-24 09:02] LABS: A/G RATIO 1.2; ALANINE AMINOTRANSFERASE,ALT 56 U/L (16-63); ALBUMIN 4.3 g/dL (3.4-5.0); ALKALINE PHOSPHATASE 52 U/L (46-116); ANION GAP 14.2 mEq/L (7-13); ASPARTATE AMNIOTRANSFERASE,AST 24 U/L (15-37); BILIRUBIN TOTAL 0.3 mg/dL (0.2-1.0); BLOOD UREA NITROGEN,BUN 17 mg/dL (7-18); CALCIUM 9.1 mg/dL (8.5-10.1); CARBON DIOXIDE,CO2 26 mmol/L (21-32); CHLORIDE,CL 102 mmol/L (98-107); CREATININE 1.55 mg/dL (0.70-1.30); EST CRCL DRUG DOSING (CG) 62.34 mL/min; GLUCOSE RANDOM 108 mg/dL (70-99); MAGNESIUM 1.8 mg/dL (1.8-2.4); POTASSIUM,K 4.2 mmol/L (3.5-5.1); PROTHROMBIN TIME 10.3 SEC (9.0-12.0); PTT,PARTIAL THROMBOPLSTIN TIME 23.8 SEC (22.0-34.0); SODIUM,NA 138 mmol/L (136-145)
[2024-08-24 09:03] LABS: BASOPHILS PERCENT AUTO 0.3 % (0.0-1.0); EOSINOPHILS PERCENT AUTO 2.9 % (1.0-3.0); LYMPHOCYTES PERCENT AUTO 37.1 % (20.5-50.1); MONOCYTES PERCENT AUTO 11.7 % (2-8)
[2024-08-24 09:07] LABS: ESTIMATED GFR 55 mL/min (>=60)
[2024-08-24 09:09] LABS: PERCENT FE SATURATION 6.6 % (20.0-50.0)
[2024-08-24 09:21] LABS: B-TYPE NATRIURETIC PEPTIDE,BNP < 5 pg/ml (0-100)
[2024-08-24] MEDS ORDERED: diphenhydrAMINE 50 MG/ML SDV IVPUSH PRN (09:31)
[2024-08-24] MEDS ORDERED: methylPREDNISolone Sodium Succinate 125 MG/2 ML SDV IVPUSH PRN (09:31)
[2024-08-24] MEDS ORDERED: Famotidine 20 MG/2 ML SDV IVPUSH PRN (09:31)
[2024-08-24] MEDS ORDERED: Sodium Chloride 0.9% 10 ML Syringe FLUSH SCH (09:45)
[2024-08-24] MEDS: ferumoxytoL 500 MG in Sodium Chloride 0.9% 100 ML IV ONE (09:58)
[2024-08-24] MEDS: Iron Dextran Complex 100 MG in Sodium Chloride 0.9% 250 ML IV ONE (09:59)
[2024-08-24 10:07] LABS: BAND PERCENT MAN 1 %; EOSINOPHILS PERCENT MAN 3 % (1-3); LYMPHOCYTES PERCENT MAN 40 % (20-50); MONOCYTES PERCENT MAN 7 % (2-8); SEG NEUTROPHILS PERCENT MAN 49 % (42-75)
[2024-08-24 10:48] VITALS: BP 143/89; PULSE 65
== END 2024-08-24 10:47 | disposition home or self-care (01) ==
LOC: DL.ED 07:59
DX: D50.9 Iron deficiency anemia, unspecified (principal); I12.9 Hypertensive chronic kidney disease with stage 1 through stage 4 chronic kidney disease, or unspecified chronic kidney disease; E78.00 Pure hypercholesterolemia, unspecified; K21.9 Gastro-esophageal reflux disease without esophagitis; N18.9 Chronic kidney disease, unspecified; Z91.048 Other nonmedicinal substance allergy status; Z91.09 Other allergy status, other than to drugs and biological substances; Z79.899 Other long term (current) drug therapy
CPT/HCPCS: 36415; 70450; 71046; 80053; 83540; 83550; 83735; 83880; 84484; 85025; 85610; 85730; 87428; 93005; 93010; 96365; 99284; 99285; Q0138

== ENCOUNTER 2024-09-25 07:23 | Day surgery (SDC) | payer MEDICARE, MEDICAID ==
[2024-09-25] MEDS ORDERED: Dextrose 5%-0.45% NaCl 1,000 ML IV SCH (07:30)
[2024-09-25] MEDS: Lactated Ringers 1,000 ML IV SCH (07:59)
[2024-09-25 10:23] VITALS: PULSE 64
[2024-09-25 10:24] VITALS: BP 107/64
== END 2024-09-25 10:37 | disposition home or self-care (01) ==
LOC: DL.ENDO 07:23
PROVIDERS: ATTEND Internal Medicine Gastroenterology
DX: D50.9 Iron deficiency anemia, unspecified (principal); K31.89 Other diseases of stomach and duodenum; I10 Essential (primary) hypertension; J45.909 Unspecified asthma, uncomplicated; K21.9 Gastro-esophageal reflux disease without esophagitis; E78.1 Pure hyperglyceridemia; F31.9 Bipolar disorder, unspecified; M19.90 Unspecified osteoarthritis, unspecified site; E66.09 Other obesity due to excess calories; Z68.32 Body mass index [BMI] 32.0-32.9, adult
CPT/HCPCS: 88305; J7120

== ENCOUNTER 2024-09-26 05:23 | Day surgery (SDC) | payer MEDICARE, MEDICAID ==
[~2024-09-26 05:23] MED LIST: Propofol 200 MG/20 ML SDV ONE
[2024-09-26] MEDS ORDERED: Dextrose 5%-0.45% NaCl 1,000 ML IV SCH (05:30)
[2024-09-26] MEDS ORDERED: Lidocaine 2% 20 ML MDV ONE (05:46)
[2024-09-26] MEDS ORDERED: Propofol 200 MG/20 ML SDV ONE ×2 (05:46→06:57)
[2024-09-26] MEDS: Lactated Ringers 1,000 ML IV SCH (05:53)
[2024-09-26 08:14] VITALS: BP 128/85; PULSE 61
== END 2024-09-26 08:31 | disposition home or self-care (01) ==
LOC: DL.ENDO 05:23
PROVIDERS: ATTEND Internal Medicine Gastroenterology
DX: D50.9 Iron deficiency anemia, unspecified (principal); D12.3 Benign neoplasm of transverse colon; D12.8 Benign neoplasm of rectum; I10 Essential (primary) hypertension; J45.909 Unspecified asthma, uncomplicated; K21.9 Gastro-esophageal reflux disease without esophagitis; F31.9 Bipolar disorder, unspecified; E66.09 Other obesity due to excess calories; Z68.32 Body mass index [BMI] 32.0-32.9, adult
CPT/HCPCS: 45385; J7120; 88305

== ENCOUNTER 2024-10-31 13:18 | Emergency (ER) | payer MEDICARE, MEDICAID ==
[2024-10-31] MEDS: Ketorolac 30 MG/ML SDV IM ONE (13:20)
[2024-10-31 14:35] VITALS: BP 120/101; PULSE 71
== END 2024-10-31 14:28 | disposition home or self-care (01) ==
LOC: DL.ED 13:18
DX: M54.6 Pain in thoracic spine (principal); I10 Essential (primary) hypertension; Z91.048 Other nonmedicinal substance allergy status; Z91.09 Other allergy status, other than to drugs and biological substances; Z79.899 Other long term (current) drug therapy; Z79.51 Long term (current) use of inhaled steroids
CPT/HCPCS: 72128; 72131; 96372; 99284; J1885

== ENCOUNTER 2024-11-20 02:48 | Emergency (ER) | payer MEDICARE, MEDICAID ==
[2024-11-20 03:03] LABS: PLATELET COUNT,PLT 275 10^3/uL (150-450); RED BLOOD CELL COUNT 4.56 10^6/uL (4.6-6.2); WHITE BLOOD CELL COUNT,WBC 9.1 10^3/uL (5.0-10.0)
[2024-11-20] MEDS: Ketorolac 30 MG/ML SDV IVPUSH ONE (03:06)
[2024-11-20 03:18] LABS: BASOPHILS PERCENT AUTO 0.3 % (0.0-1.0); EOSINOPHILS PERCENT AUTO 2.5 % (1.0-3.0); LYMPHOCYTES PERCENT AUTO 34.7 % (20.5-50.1); MONOCYTES PERCENT AUTO 11.1 % (2-8); NEUTROPHILS PERCENT AUTO 51.4 % (42.2-75.2)
[2024-11-20 03:36] LABS: A/G RATIO 1.4; ALANINE AMINOTRANSFERASE,ALT 51.0 U/L (16-63); ASPARTATE AMNIOTRANSFERASE,AST 23.0 U/L (15-37); BILIRUBIN TOTAL 0.3 mg/dL (0.2-1.0); BLOOD UREA NITROGEN,BUN 17.0 mg/dL (7-18); CARBON DIOXIDE,CO2 27.0 mmol/L (21-32); CHLORIDE,CL 103.0 mmol/L (98-107); CREATININE 1.25 mg/dL (0.70-1.30); EST CRCL DRUG DOSING (CG) 73.81 mL/min; GLUCOSE RANDOM 116.0 mg/dL (70-99); POTASSIUM,K 3.9 mmol/L (3.5-5.1); PROTEIN TOTAL,TP 7.3 g/dL (6.4-8.2); SODIUM,NA 139.0 mmol/L (136-145)
[2024-11-20 03:37] LABS: ESTIMATED GFR 71.0 mL/min (>=60)
[2024-11-20 04:28] VITALS: BP 119/69; PULSE 67
[2024-11-20 05:14] LABS: EOSINOPHILS PERCENT MAN 2 % (1-3); LYMPHOCYTES PERCENT MAN 40 % (20-50); MONOCYTES PERCENT MAN 8 % (2-8); SEG NEUTROPHILS PERCENT MAN 50 % (42-75)
== END 2024-11-20 04:40 | disposition home or self-care (01) ==
LOC: DL.ED 02:48
DX: R07.1 Chest pain on breathing (principal); I10 Essential (primary) hypertension; J44.89 Other specified chronic obstructive pulmonary disease; E78.5 Hyperlipidemia, unspecified; Z91.048 Other nonmedicinal substance allergy status; Z91.09 Other allergy status, other than to drugs and biological substances; Z79.51 Long term (current) use of inhaled steroids; Z79.899 Other long term (current) drug therapy
CPT/HCPCS: 36415; 71045; 80053; 83735; 84484; 85025; 85379; 93005; 93010; 96374; 99284; 99285; J1885

== ENCOUNTER 2025-01-09 15:32 | Emergency (ER) | payer MEDICARE, MEDICAID ==
[2025-01-09] MEDS ORDERED: Sodium Chloride 0.9% 10 ML Syringe FLUSH PRN (15:59)
[2025-01-09] MEDS: Ketorolac 30 MG/ML SDV IVPUSH ONE (16:09)
[2025-01-09 16:10] LABS: BASOPHILS PERCENT AUTO 0.4 % (0.0-1.0); EOSINOPHILS PERCENT AUTO 2.4 % (1.0-3.0); LYMPHOCYTES PERCENT AUTO 20.0 % (20.5-50.1); MONOCYTES PERCENT AUTO 14.8 % (2-8); NEUTROPHILS PERCENT AUTO 62.4 % (42.2-75.2); PLATELET COUNT,PLT 240 10^3/uL (150-450); RED BLOOD CELL COUNT 4.36 10^6/uL (4.6-6.2); WHITE BLOOD CELL COUNT,WBC 9.2 10^3/uL (5.0-10.0)
[2025-01-09 16:24] LABS: INR 0.9 (0.9-1.2)
[2025-01-09 16:31] LABS: A/G RATIO 0.9; ALANINE AMINOTRANSFERASE,ALT 114.0 U/L (16-63); ASPARTATE AMNIOTRANSFERASE,AST 47.0 U/L (15-37); BILIRUBIN TOTAL 0.4 mg/dL (0.2-1.0); BLOOD UREA NITROGEN,BUN 13.0 mg/dL (7-18); CARBON DIOXIDE,CO2 24.0 mmol/L (21-32); CHLORIDE,CL 108.0 mmol/L (98-107); CREATININE 1.43 mg/dL (0.70-1.30); EST CRCL DRUG DOSING (CG) 65.82 mL/min; ESTIMATED GFR 60.0 mL/min (>=60); GLUCOSE RANDOM 136.0 mg/dL (70-99); POTASSIUM,K 4.1 mmol/L (3.5-5.1); PROTEIN TOTAL,TP 7.4 g/dL (6.4-8.2); SODIUM,NA 145.0 mmol/L (136-145)
[2025-01-09 16:32] LABS: LACTIC ACID 1.3 mmol/L (0.4-2.0)
[2025-01-09 18:01] LABS: APPEARANCE,URINE CLEAR (CLEAR); GLUCOSE,URINE NEGATIVE (NEGATIVE); OCCULT BLOOD,URINE NEGATIVE (NEGATIVE)
[2025-01-09 18:14] LABS: EPITHELIAL CELLS,URINE RARE /HPF (NOT SEEN)
[2025-01-09] MEDS: Iopamidol 755 Mg/ML 100 ML Bottle IVPUSH ONE (18:36)
[2025-01-09 19:03] VITALS: BP 123/78; PULSE 80
== END 2025-01-09 18:57 | disposition left against medical advice (07) ==
LOC: DL.ED 15:32 → DL.MS 18:32 → UNDOADMOB 18:32
DX: K62.89 Other specified diseases of anus and rectum (principal); R79.82 Elevated C-reactive protein (CRP); R79.89 Other specified abnormal findings of blood chemistry; E78.00 Pure hypercholesterolemia, unspecified; I10 Essential (primary) hypertension; J44.89 Other specified chronic obstructive pulmonary disease; K21.9 Gastro-esophageal reflux disease without esophagitis; F17.210 Nicotine dependence, cigarettes, uncomplicated; Z91.09 Other allergy status, other than to drugs and biological substances; Z91.048 Other nonmedicinal substance allergy status; Z79.899 Other long term (current) drug therapy
CPT/HCPCS: 36415; 74177; 80053; 81001; 82272; 83605; 84145; 85025; 85610; 86140; 94640; 96361; 96365; 96375; 99284; A9270; J1885; J2543; J7030; Q9967

== ENCOUNTER 2025-01-10 04:31 | Emergency (ER) | payer MEDICARE, MEDICAID ==
[2025-01-10] MEDS: Lidocaine 2% Jelly 10 ML Urojet MUCMEM ONE (05:28)
[2025-01-10 06:45] VITALS: BP 122/79; PULSE 87
== END 2025-01-10 06:00 | disposition home or self-care (01) ==
LOC: DL.ED 04:31
DX: M53.3 Sacrococcygeal disorders, not elsewhere classified (principal); I10 Essential (primary) hypertension; E78.00 Pure hypercholesterolemia, unspecified; J44.89 Other specified chronic obstructive pulmonary disease; E66.9 Obesity, unspecified; Z68.27 Body mass index [BMI] 27.0-27.9, adult; Z91.048 Other nonmedicinal substance allergy status; Z79.899 Other long term (current) drug therapy
CPT/HCPCS: 96372; 99283; A9270; J2003; J2270